=== PATIENT | male | born 1960 | race Caucasian/White ===

== ENCOUNTER → 2017-06-09 | Outpatient (CLI) | payer OTHER ==
[~2017-06-09] MED LIST: LIDOCAINE 1%/EPI 1:100,000 50 ML, SODIUM BICARBONATE VIAL 5 MEQ in IV NORMAL SALINE 100... SQ ONE
--- NOTE | 2017-06-09 14:57 | CARD ---
APPROVED REPORT Patient StatusOUT-PATIENT Incubator Operator: Kassandra Smith RVT; Eric Johnson [facility] Procedure(s) performed: Endovenous radiofrequency ablation of the right lesser saphenous vein with st ab phlebectomy of varicose vein tributaries. INDICATION FOR PROCEDURE The indication(s) include : Symptomatic Chronic Venous Insufficiency with Varicose Veins, lower extre mity pain and edema. PROCEDURE NARRATIVE The patient was transferred to the procedure suite and the insufficient saphenous vein was mapped by ultrasound and diagrammed on the underlying skin. The depth and diameter of the vein(s) to be treate d was documented. The varicose tributary veins and suitable access sites were identified and mapped as well. The patient was then positioned prone on the procedure table. The entire limb was sterilel y prepared and the lower extremity and treatment table were sterilely draped. The RF catheter was p laced on the sterile field, flushed and wiped down, prepared, and connected by a sterile cable. The patient was placed in reverse-Trendelenburg position and local anesthesia was instilled in the sk in overlying the access site. A skin incision was made overlying the identified and mapped lesser sa phenous vein entry site. The vein was punctured through the incision and using ultrasound guidance a nd the Seldinger technique a guide wire was introduced through the needle which was then exchanged ov er the guide wire for a 7 F sheath. The guide wire was removed and the sheath was flushed. The RF p robe was placed into the vein through the sheath and positioned at a point just distal (about 0.5 to 1 cm) to the entrance point of the lesser saphenous vein into the popliteal junction. After the RF probe position was verified by the ultrasound, tumescent anesthesia was infiltrated, und er ultrasound guidance, precisely into the perivenuus compartment along the entire length of vein fro m the entry site to the saphenofemoral junction until a "halo" of fluid was noted around the vein. The patient was then placed in Trendelenburg position. After the RF probe position was again confirm ed with ultrasound imaging, moderate external compression was applied over the RF heating element, an d RF energy was applied. The probe was withdrawn sequentially in 6.5 cm steps with slight overlap of 7 cm segments of ablation and monitored to keep the probe temperature at 120 degrees Celsius and the generator output well below its maximum power. Treatment Segments: 6 Total Length: 26 cm. Tota l Ablation time: 2 minutes. Repeat ultrasound of the saphenous vein was performed confirming successful treatment. The catheter and sheath were withdrawn and hemostasis established with direct pressure. Subsequently, the skin an d subcutaneous tissues over the previously mapped and marked varicose vein tributaries was infiltrate d with local anesthetic, multiple incisions made 2 inches apart and significant venous material was r emoved from each incision. After assuring hemostasis, the skin incisions over the saphenous vein and stab phlebectomies were closed with a bandage and an external compression dressing was applied from t he level of the foot to the most proximal level of the thigh. Patient tolerated the procedure well. T here were no immediate complications.
== END ==
LOC: VNUS 12:12
PROVIDERS: ATTEND Internal Medicine Cardiovascular Disease
DX: I83.11 Varicose veins of right lower extremity with inflammation (principal)
CPT/HCPCS: 36475; 37765; J3490; J7030

== ENCOUNTER 2019-04-21 13:34 | Inpatient (IN) | payer OTHER ==
[~2019-04-21] VITALS: Ht 182.9 cm; Wt 95.7 kg
[2019-04-21 14:49] VITALS: BP 145/89
--- NOTE | 2019-04-21 15:09 | PDOC1 ---
History and Physical Date of Admission Date of Admission DATE: 04/21/19 TIME: 15:08 Identification/Chief Complaint Chief Complaint Abdominal pain Source Source: Patient History of Present Illness History of Present Illness Mr Ortiz is a 58-year-old male retired [employer] w/ PMHx of remote anal fissure surgery, otherwise healthy who presents with lower abdominal discomfort for the past 2 weeks that has been progressive. He has been taking stool softeners and psyllium per his PCP as he also had some constipation early on, but has been having bowel movements, however, he experiences pain and tenesmus. As he did not improve he was referred in by his primary doctor to go to the ED at [facility]. His pain was rated 8/10 and suprapubic and LLQ. Upon CT scan he was found with large abscess identified in the right lower quadrant abdomen abutting the redundant sigmoid colon and cecum. He was called for admission to [facility] as general surgery is not available at [facility]. WBC 13K with left shift, glucose 108, otherwise no abnormalities on labs, he is tachycardic, meets sepsis criteria. He has never had a screening colonoscopy. 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 Lives with his family. He drinks 3-4 beers per night, but has not had a drink since 2 weeks ago. Past Medical History Cardiovascular: No pertinent hx Pulmonary: No pertinent hx GI: No pertinent hx Heme/Onc: No pertinent hx Hepatobiliary: No pertinent hx Psych: No pertinent hx Rheumatologic: No pertinent hx Infectious disease: No pertinent hx ENT: No pertinent hx Renal/: No pertinent hx Endocrine: No pertinent hx Dermatology: No pertinent hx Past Surgical History Past Surgical History: Other (Anal fissure) Family History Family History: Cancer (Liver cancer - Father), Diabetes (Mother) Social History Smoke: No ALCOHOL: other (3-4 beers per night) Drugs: None Current Medications Current Medications Active Scripts Active Reported No Known Medications Prior To Admisstion (Info) Each 1 Each MC 1X Allergies Allergies: Coded Allergies: No Known Drug Allergies (Unverified , 06/09/17) ROS General: YES: Appetite; No: Chills, Night Sweats, Fatigue, Malaise, Other PSYCHOLOGICAL ROS: No: Anxiety, Behavioral Disorder, Concentration difficultie, Decreased libido, Depression, Disorientation, Hallucinations, Hostility, Irritablity, Memory difficulties, Mood Swings, Obsessive thoughts, Physical abuse, Sexual abuse, Sleep disturbances, Suicidal ideation, Other Eyes: No Blurry vision, No Decreased vision, No Double vision, No Dry eyes, No Excessive tearing, No Eye Pain, No Itchy Eyes, No Loss of vision, No Photophobia, No Scotomata, No Uses contacts, No Uses glasses, No Other HEENT: No: Heacaches, Visual Changes, Hearing change, Nasal congestion, Nasal discharge, Oral lesions, Sinus pain, Sore Throat, Epistaxis, Sneezing, Snoring, Tinnitus, Vertigo, Vocal changes, Other ALLERGY AND IMMUNOLOGY: No: Hives, Insect Bite Sensitivity, Itchy/Watery Eyes, Nasal Congestion, Post Nasal Drip, Seasonal Allergies, Other Hematological and Lymphatic: No: Bleeding Problems, Blood Clots, Blood Transfusions, Brusing, Night Sweats, Pallor, Swollen Lymph Nodes, Other ENDOCRINE: No: Breast Changes, Galactorrhea, Hair Pattern Changes, Hot Flashes, Malaise/lethargy, Mood Swings, Palpitations, Polydipsia/polyuria, Skin Changes, Temperature Intolerance, Unexpected Weight Changes, Other Breast: No New/Changing Breast Lumps, No Nipple changes, No Nipple discharge, No Other Respiratory: No: Cough, Hemoptysis, Orthopnea, Pleuritic Pain, Shortness of breath, SOB with excertion, Sputum Changes, Stridor, Tachypnea, Wheezing, Other Cardiovascular: No Chest Pain, No Palpitations, No Orthopnea, No Paroxysmal Noc. Dyspnea, No Edema, No Lt Headedness, No Other Gastrointestinal: Yes Nausea, Yes Abdominal Pain, Yes Constipation; No Vomiting, No Diarrhea, No Melena, No Hematochezia, No Other Genitourinary: No Dysuria, No Frequency, No Incontinence, No Hematuria, No Retention, No Discharge, No Urgency, No Pain, No Flank Pain, No Other, No , No , No , No , No , No , No Musculoskeletal: No Gait Disturbance, No Joint Pain, No Joint Stiffness, No Joint Swelling, No Muscle Pain, No Muscular Weakness, No Pain In:, No Swelling In:, No Other Neurological: No Behavorial Changes, No Bowel/Bladder ControlChng, No Confusion, No Dizziness, No Gait Disturbance, No Headaches, No Impaired Coord/balance, No Memory Loss, No Numbness/Tingling, No Seizures, No Speech Problems, No Tremors, No Visual Changes, No Weakness, No Other Skin: No Dry Skin, No Eczema, No Hair Changes, No Lumps, No Mole Changes, No Mottling, No Nail Changes, No Pruritus, No Rash, No Skin Lesion Changes, No Other, No Acne Physical Exam General: Alert, Oriented X3, Cooperative, mild distress HEENT: Atraumatic, PERRLA, EOMI, Mucous membr. moist/pink, Other (Adentulous, dentures in place) Lungs: Clear to auscultation, Normal air movement Heart: S1S2, RRR, no gallops, no murmurs Abdomen: Normal bowel sounds, Soft, No hepatosplenomegaly, No masses, Other (Suprapubic tenderness) Rectal Exam: not examined Extremities: No clubbing, No cyanosis, No edema, Normal pulses, No tenderness/swelling Skin: No rashes, No breakdown, No significant lesion Neuro: Normal gait, Normal speech, Strength at 5/5 X4 ext, Normal tone, Sensation intact, Cranial nerves 3-12 NL, Reflexes 2+ Psych/Mental Status: Mental status NL, Mood NL Images Images CT abdomen/pelvis - 1. Large abscess identified in the right lower quadrant abdomen abutting the redundant sigmoid colon and cecum. The source of abscess is difficult to evaluate could be sigmoid colon diverticulitis or an appendiceal abscess. 2. A 2.2 cm cystic structure identified in the right lobe of the liver could be a cyst or cystic lesion. Follow-up MRI can be considered. 3. 6.5 mm nodule right middle lobe of the lung. Follow-up CT per Fleischner Society guidelines in 6 months. VTE Prophylaxis Ordered VTE Prophylaxis Devices: No VTE Pharmacological Prophylaxi: Yes Assessment/Plan Assessment/Plan A/P: Intra-abdominal abscess - possibly perforated diverticulitis vs appendix vs malignancy. sherry Yoo. Consult general surgery, GI. May consult IR for drainage based on surgery evaluation. Pain control with dilaudid, he vomited after morphine Sepsis - 2/2 abdominal abscess with leukocytosis 13K and tachycardia, given empiric IVF and antibiotics already. Lactate Liver mass - no h/o liver disease. GI consulted. He should have this further evaluated at some point, will order US Pulmonary nodule - incidental finding, based on size we have advised him of a need for 6 month f/u. FEN - NPO PPX - SCDs, lovenox FULL CODE Dispo - inpatient for intra-abdominal abscess, likely at least 2 midnights. NOEL JACKSON MD Apr 21, 2019 15:09
[2019-04-21] MEDS ORDERED: MORPHINE SULFATE 4 MG/ML VIAL. IV PRN (15:30)
[2019-04-21] MEDS: IV NORMAL SALINE 1000ML BAG 1,000 ML IV SCH (15:40)
[2019-04-21] MEDS: PIPERACILLIN/TAZOBACTAM 3.375 GM in IV NORMAL SALINE 50ML 50 ML IV SCH ×2 (15:42→23:00)
[2019-04-21] MEDS: ONDANSETRON PF 4 MG/2 ML VIAL. IV PRN (16:05)
[2019-04-21] MEDS: HYDROmorphone 2 MG/ML VIAL IVP PRN ×2 (16:06→20:20)
--- NOTE | 2019-04-21 16:13 | PDOC2 ---
GI CONSULT Reason For Consult: Abd abscess HPI: HPI: Pleasant 58 y/o male transferred from [facility]. Ill for 2 weeks - began with periumbilical "belly ache" after weed-eating. Comes and goes, worse when straining to stool, gradually worse (now keeping him awake at night). Location changed - now mostly in lower abdomen. About a week ago had sweats/fever - took Tylenol. Saw his PCP and had an abd x-ray in [place] that reportedly showed a lot of retained stool. He tried Miralax, suppositories, and Gas-X without much relief. Last passed a small stool yesterday. Appetite was stable until about 3-4 days ago - now just not hungry. Denies reflux/heartburn, dysphagia, n/v, diarrhea, hematochezia, melena, and weight loss. Typically more on the constipated side - regulated w/ Metamucil. No previous EGD or colonoscopy. No GB, liver, pancreas, or PUD history. No NSAID use. CT @ [facility]: large abscess in RLQ abutting redundant sigmoid colon and cecum (s ource difficult to evaluate- diverticulitis or appendiceal), 2.2cm cystic structure in right hepatic lobe, hepatic steatosis, and right middle lung nodule. Labs noted WBC 13.8, normal Hgb, normal LFTs, normal Cr. D/w Dr. Webster - surgery and IR asked to comment. PMH: PMH: allergic rhinitis anal fissure repair, vein stripping FH: Family History: Cancer (father - liver), Other (multiple relatives w/ diverticulitis) Social History: Smoke: No ALCOHOL: other (4-5 beers daily) Drugs: None ROS: GEN: Denies fevers, chills, sweats HEENT: Denies blurred vision, sore throat CV: Denies chest pain RESP: Denies shortness of air, cough GI: Per HPI : Denies hematuria, dysuria ENDO: Denies weight changes NEURO: Denies confusion, dizziness MSK: Denies weakness, joint pain/swelling SKIN: Denies jaundice, pruritus Allergies: Coded Allergies: No Known Drug Allergies (Unverified , 06/09/17) Medications: Current Medications Medications (Trade) Dose Ordered Sig/Linda Route PRN Reason Start Time Stop Time Status Last Admin Dose Admin Sodium Chloride 1,000 ml @ 100 mls/hr Q10H IV 04/21/19 16:00 04/21/19 15:40 Piperacillin Sod/ Tazobactam Sod 3.375 gm/Sodium Chloride 50 ml @ 100 mls/hr Q8HRS IV 04/21/19 16:00 04/21/19 15:42 PE: GEN: NAD - supportive family present HEENT: Atraumatic, PERRL LUNGS: CTAB anteriorly HEART: RRR ABD: quiet BS, soft, non-distended, right suprapubic tenderness to light palpation EXTREMITY: No edema SKIN: No rashes, no jaundice NEURO/PSYCH: A & O 3 A/P: A/P: Abd pain - periumbilical at first, now lower Change in bowel habits Leukocytosis Abnormal CT - RLQ abscess CRC screen - none H/o constipation - controlled w/ Metamucil Hepatic steatosis, right hepatic cystic lesion -- ?appendicitis - await IR and surgical thoughts Agree w/ atbx. Needs screening colonoscopy down the road. DEBBIE BRUNER Apr 21, 2019 16:13
--- NOTE | 2019-04-21 16:52 | PDOC2 ---
CONSULT Date of Consult Date of Consult DATE: 04/21/19 TIME: 16:44 Reason for Consult Reason for Consult: abdominal abscess Referring Physician Referring Physician: KARI Identification/Chief Complaint Chief Complaint lower abdominal pain Source Source: Chart review, Patient History of Present Illness Reason for Visit: Mr Ortiz is a 58 yo gentleman with a two week hx of abdominal pain that started around the umbilicus. Now worse in lower abdomen. CT done in the [facility] ED showed an abdominal abscess. Past Medical History Cardiovascular: No pertinent hx Pulmonary: No pertinent hx GI: No pertinent hx Heme/Onc: No pertinent hx Hepatobiliary: No pertinent hx Psych: No pertinent hx Rheumatologic: No pertinent hx Infectious disease: No pertinent hx ENT: No pertinent hx Renal/: No pertinent hx Endocrine: No pertinent hx Dermatology: No pertinent hx Past Surgical History Past Surgical History: Other (Anal fissure) Family History Family History: Cancer (Liver cancer - Father), Diabetes (Mother) Social History No ALCOHOL: other (4-5 beers daily) Drugs: None Current Medications Current Medications Current Medications Sodium Chloride 1,000 ml @ 100 mls/hr Q10H IV Last administered on 04/21/19at 15:40; Start 04/21/19 at 16:00 Ondansetron HCl (Zofran) 4 mg PRN Q4HRS PRN IV NAUSEA/VOMITING Last administered on 04/21/19at 16:05; Start 04/21/19 at 15:15 Piperacillin Sod/ Tazobactam Sod 3.375 gm/Sodium Chloride 50 ml @ 100 mls/hr Q8HRS IV Last administered on 04/21/19at 15:42; Start 04/21/19 at 16:00 Metronidazole 100 ml @ 100 mls/hr Q8HRS IV Last administered on 04/21/19at 16:29; Start 04/21/19 at 16:00 Morphine Sulfate (Morphine Sulfate) 4 mg PRN Q3HRS PRN IV PAIN; Start 04/21/19 at 15:30; Stop 04/21/19 at 15:53; Status DC Hydromorphone HCl (Dilaudid) 0.4 mg PRN Q4HRS PRN IVP PAIN Last administered on 04/21/19at 16:06; Start 04/21/19 at 16:00 Active Scripts Active Reported No Known Medications Prior To Admisstion (Info) Each 1 Each 1X Allergies Allergies: Coded Allergies: No Known Drug Allergies (Unverified , 06/09/17) ROS General: YES: Chills Gastrointestinal: Yes Abdominal Pain, Yes Other (anorexia) Physical Exam General: Alert, Oriented X3, No acute distress HEENT: Atraumatic Lungs: Normal air movement Heart: Regular rate, Other Abdomen: Other (TTP in the lower quadrants) Neuro: Normal speech Vitals VITALS Vital Signs Date Time Temp Pulse Resp B/P (MAP) Pulse Ox O2 Delivery O2 Flow Rate FiO2 04/21/19 16:40 Room Air T 97.7, 145/89, HR 80, RR [address] scan from [facility] reviewed with the radiologist Assessment/Plan Assessment/Plan pelvic abscess, ruptured appendix vs perforated diverticulitis dehydration IV abx, hydration d/w IR for percutaneous drainage in the AM hopefully can defervesce acute episode prior to surgical intervention will follow with you Thanks for consult HILDA WALKER MD Apr 21, 2019 16:52
[2019-04-21 19:50] VITALS: BP 131/80
[2019-04-21] MEDS ORDERED: HYDROmorphone 2 MG/ML VIAL IVP ONE (23:00)
[2019-04-21] MEDS: HEPARIN for SUB-Q USE 5,000 UNIT/ML VIAL. SQ SCH (23:20)
[2019-04-21 23:54] VITALS: BP 141/83
[2019-04-22] VITALS (16 sets, daily range): BP systolic 118–143; BP diastolic 81–99
[2019-04-22] MEDS: HYDROmorphone 2 MG/ML VIAL IVP PRN ×6 (02:37→20:39)
[2019-04-22 04:44] LABS: BASO % 0 % (0-3); EOS # 0.1 x10^3/uL (0.0-0.7); EOS % 0 % (0-3); HEMATOCRIT 40.1 % (39.0-53.0); HEMOGLOBIN 13.9 g/dL (13.0-17.5); LYMPH # 0.8 x10^3/uL (1.0-4.8); LYMPH % 7 % (24-48); MEAN CORPUSCULAR HEMOGLOBIN 33 pg (25-35); MEAN CORPUSCULAR HGB CONC 35 g/dL (31-37); MEAN CORPUSCULAR VOLUME 95 fL (79-100); MONO # 1.2 x10^3/uL (0.0-1.1); MONO % 10 % (0-9); NEUT # 9.4 x10^3/uL (1.8-7.7); NEUT % 82 % (31-73); PLATELET COUNT 285 x10^3/uL (140-400); RED BLOOD COUNT 4.24 x10^6/uL (4.30-5.70); RED CELL DISTRIBUTION WIDTH 12.8 % (11.5-14.5); WHITE BLOOD COUNT 11.5 x10^3/uL (4.0-11.0)
[2019-04-22 04:57] LABS: ALBUMIN 2.6 g/dL (3.4-5.0); ALBUMIN/GLOBULIN RATIO 0.7 (1.0-1.7); CALCIUM 8.7 mg/dL (8.5-10.1); GFR 76.2; POTASSIUM 4.1 mmol/L (3.5-5.1); TOTAL BILIRUBIN 0.8 mg/dL (0.2-1.0); TOTAL PROTEIN 6.4 g/dL (6.4-8.2)
[2019-04-22] MEDS: IV NORMAL SALINE 1000ML BAG 1,000 ML IV SCH ×3 (06:10→20:44)
[2019-04-22] MEDS: PIPERACILLIN/TAZOBACTAM 3.375 GM in IV NORMAL SALINE 50ML 50 ML IV SCH ×3 (06:43→20:39)
[2019-04-22] MEDS: HEPARIN for SUB-Q USE 5,000 UNIT/ML VIAL. SQ SCH ×2 (06:55→20:39)
--- NOTE | 2019-04-22 08:17 | PDOC ---
TODD VALERIO OUTSOLE TACKER 04/22/19 0817: SURGICAL PROGRESS NOTE Subjective pain 7-8 did have a small stool and some flatus Vital Signs Vital Signs Date Time Temp Pulse Resp B/P (MAP) Pulse Ox O2 Delivery O2 Flow Rate FiO2 04/22/19 07:21 Room Air 04/22/19 03:51 97.7 79 18 132/81 (98) 94 97.7 I&O Intake and Output 04/22/19 07:00 Intake Total 0 ml Output Total 975 ml Balance -975 ml Intake Oral 0 ml Output Urine Total 975 ml General: Alert, Oriented X3, Cooperative, No acute distress Abdomen: Soft, Other (distended, ttp lower abd on exam) Labs Laboratory Tests Test 04/21/19 16:15 04/22/19 04:10 Lactic Acid Level 1.1 mmol/L (0.4-2.0) White Blood Count 11.5 x10^3/uL (4.0-11.0) Red Blood Count 4.24 x10^6/uL (4.30-5.70) Hemoglobin 13.9 g/dL (13.0-17.5) Hematocrit 40.1 % (39.0-53.0) Mean Corpuscular Volume 95 fL (79-100) Mean Corpuscular Hemoglobin 33 pg (25-35) Mean Corpuscular Hemoglobin Concent 35 g/dL (31-37) Red Cell Distribution Width 12.8 % (11.5-14.5) Platelet Count 285 x10^3/uL (140-400) Neutrophils (%) (Auto) 82 % (31-73) Lymphocytes (%) (Auto) 7 % (24-48) Monocytes (%) (Auto) 10 % (0-9) Eosinophils (%) (Auto) 0 % (0-3) Basophils (%) (Auto) 0 % (0-3) Neutrophils # (Auto) 9.4 x10^3/uL (1.8-7.7) Lymphocytes # (Auto) 0.8 x10^3/uL (1.0-4.8) Monocytes # (Auto) 1.2 x10^3/uL (0.0-1.1) Eosinophils # (Auto) 0.1 x10^3/uL (0.0-0.7) Basophils # (Auto) 0.0 x10^3/uL (0.0-0.2) Prothrombin Time 15.0 SEC (11.7-14.0) Prothromb Time International Ratio 1.2 (0.8-1.1) Sodium Level 142 mmol/L (136-145) Potassium Level 4.1 mmol/L (3.5-5.1) Chloride Level 106 mmol/L (98-107) Carbon Dioxide Level 29 mmol/L (21-32) Anion Gap 7 (6-14) Blood Urea Nitrogen 11 mg/dL (8-26) Creatinine 1.0 mg/dL (0.7-1.3) Estimated GFR (Cockcroft-Gault) 76.2 BUN/Creatinine Ratio 11 (6-20) Glucose Level 91 mg/dL (70-99) Calcium Level 8.7 mg/dL (8.5-10.1) Total Bilirubin 0.8 mg/dL (0.2-1.0) Aspartate Amino Transf (AST/SGOT) 15 U/L (15-37) Alanine Aminotransferase (ALT/SGPT) 30 U/L (16-63) Alkaline Phosphatase 62 U/L (46-116) Total Protein 6.4 g/dL (6.4-8.2) Albumin 2.6 g/dL (3.4-5.0) Albumin/Globulin Ratio 0.7 (1.0-1.7) Laboratory Tests Test 04/21/19 16:15 04/22/19 04:10 Lactic Acid Level 1.1 mmol/L (0.4-2.0) White Blood Count 11.5 x10^3/uL (4.0-11.0) Red Blood Count 4.24 x10^6/uL (4.30-5.70) Hemoglobin 13.9 g/dL (13.0-17.5) Hematocrit 40.1 % (39.0-53.0) Mean Corpuscular Volume 95 fL (79-100) Mean Corpuscular Hemoglobin 33 pg (25-35) Mean Corpuscular Hemoglobin Concent 35 g/dL (31-37) Red Cell Distribution Width 12.8 % (11.5-14.5) Platelet Count 285 x10^3/uL (140-400) Neutrophils (%) (Auto) 82 % (31-73) Lymphocytes (%) (Auto) 7 % (24-48) Monocytes (%) (Auto) 10 % (0-9) Eosinophils (%) (Auto) 0 % (0-3) Basophils (%) (Auto) 0 % (0-3) Neutrophils # (Auto) 9.4 x10^3/uL (1.8-7.7) Lymphocytes # (Auto) 0.8 x10^3/uL (1.0-4.8) Monocytes # (Auto) 1.2 x10^3/uL (0.0-1.1) Eosinophils # (Auto) 0.1 x10^3/uL (0.0-0.7) Basophils # (Auto) 0.0 x10^3/uL (0.0-0.2) Prothrombin Time 15.0 SEC (11.7-14.0) Prothromb Time International Ratio 1.2 (0.8-1.1) Sodium Level 142 mmol/L (136-145) Potassium Level 4.1 mmol/L (3.5-5.1) Chloride Level 106 mmol/L (98-107) Carbon Dioxide Level 29 mmol/L (21-32) Anion Gap 7 (6-14) Blood Urea Nitrogen 11 mg/dL (8-26) Creatinine 1.0 mg/dL (0.7-1.3) Estimated GFR (Cockcroft-Gault) 76.2 BUN/Creatinine Ratio 11 (6-20) Glucose Level 91 mg/dL (70-99) Calcium Level 8.7 mg/dL (8.5-10.1) Total Bilirubin 0.8 mg/dL (0.2-1.0) Aspartate Amino Transf (AST/SGOT) 15 U/L (15-37) Alanine Aminotransferase (ALT/SGPT) 30 U/L (16-63) Alkaline Phosphatase 62 U/L (46-116) Total Protein 6.4 g/dL (6.4-8.2) Albumin 2.6 g/dL (3.4-5.0) Albumin/Globulin Ratio 0.7 (1.0-1.7) Assessment/Plan pelvic abscess continue abx IR eval pending perc drain HILDA WALKER MD 04/22/19 1214: SURGICAL PROGRESS NOTE Assessment/Plan pt seen family in room awaitng IR procedure TODD VALERIO OUTSOLE TACKER Apr 22, 2019 08:17 HILDA WALKER MD Apr 22, 2019 12:14
--- NOTE | 2019-04-22 08:58 | PDOC ---
PROGRESS NOTES Chief Complaint Chief Complaint A/P: Intra-abdominal abscess - possibly perforated diverticulitis vs appendix vs malignancy. sherry Yoo. Consult general surgery, GI. May consult IR for drainage based on surgery evaluation. Pain control with dilaudid, he vomited after morphine Sepsis - 2/2 abdominal abscess with leukocytosis 13K and tachycardia, given empiric IVF and antibiotics already. Lactate neg Liver mass - no h/o liver disease. GI consulted. He should have this further evaluated at some point, will order US Elevated INR - possibly 2/2 poor nutritional status recently. Will monitor Pulmonary nodule - incidental finding, based on size we have advised him of a need for 6 month f/u. FEN - NPO PPX - SCDs, lovenox FULL CODE Dispo - inpatient for intra-abdominal abscess, likely at least 2 midnights. 30 minutes on chart review, patient examination, d/w family History of Present Illness History of Present Illness Mr Ortiz is a 58-year-old male retired [employer] w/ PMHx of remote anal fissure surgery, otherwise healthy who presents with lower abdominal discomfort for the past 2 weeks that has been progressive. He has been taking stool softeners and psyllium per his PCP as he also had some constipation early on, but has been having bowel movements, however, he experiences pain and tenesmus. As he did not improve he was referred in by his primary doctor to go to the ED at [facility]. His pain was rated 8/10 and suprapubic and LLQ. Upon CT scan he was found with large abscess identified in the right lower quadrant abdomen abutting the redundant sigmoid colon and cecum. He was called for admission to [facility] as general surgery is not available at [facility]. WBC 13K with left shift, glucose 108, otherwise no abnormalities on labs, he is tachycardic, meets sepsis criteria. He has never had a screening colonoscopy. 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 Lives with his family. He drinks 3-4 beers per night, but has not had a drink since 2 weeks ago. Overnight lost IV access, had significant pain, likely did not receive a full dose of dilaudid, after reinsertion of IV his pain is better with meds. He did have a small BM this morning. Plans for IR drain today. No CP or SOB Vitals Vitals Vital Signs Date Time Temp Pulse Resp B/P (MAP) Pulse Ox O2 Delivery O2 Flow Rate FiO2 04/22/19 07:21 Room Air 04/22/19 07:00 98.0 91 16 135/86 (102) 93 98.0 Physical Exam General: Alert, Oriented X3, Cooperative, No acute distress Heart: Regular rate, Other Lungs: Clear Abdomen: Soft, Other (distended, ttp lower abd on exam) Extremities: No clubbing, No cyanosis, No edema, Normal pulses, No tenderness/swelling Skin: No rashes, No breakdown, No significant lesion Labs LABS Laboratory Tests Test 04/21/19 16:15 04/22/19 04:10 Lactic Acid Level 1.1 mmol/L (0.4-2.0) White Blood Count 11.5 x10^3/uL (4.0-11.0) Red Blood Count 4.24 x10^6/uL (4.30-5.70) Hemoglobin 13.9 g/dL (13.0-17.5) Hematocrit 40.1 % (39.0-53.0) Mean Corpuscular Volume 95 fL (79-100) Mean Corpuscular Hemoglobin 33 pg (25-35) Mean Corpuscular Hemoglobin Concent 35 g/dL (31-37) Red Cell Distribution Width 12.8 % (11.5-14.5) Platelet Count 285 x10^3/uL (140-400) Neutrophils (%) (Auto) 82 % (31-73) Lymphocytes (%) (Auto) 7 % (24-48) Monocytes (%) (Auto) 10 % (0-9) Eosinophils (%) (Auto) 0 % (0-3) Basophils (%) (Auto) 0 % (0-3) Neutrophils # (Auto) 9.4 x10^3/uL (1.8-7.7) Lymphocytes # (Auto) 0.8 x10^3/uL (1.0-4.8) Monocytes # (Auto) 1.2 x10^3/uL (0.0-1.1) Eosinophils # (Auto) 0.1 x10^3/uL (0.0-0.7) Basophils # (Auto) 0.0 x10^3/uL (0.0-0.2) Prothrombin Time 15.0 SEC (11.7-14.0) Prothromb Time International Ratio 1.2 (0.8-1.1) Sodium Level 142 mmol/L (136-145) Potassium Level 4.1 mmol/L (3.5-5.1) Chloride Level 106 mmol/L (98-107) Carbon Dioxide Level 29 mmol/L (21-32) Anion Gap 7 (6-14) Blood Urea Nitrogen 11 mg/dL (8-26) Creatinine 1.0 mg/dL (0.7-1.3) Estimated GFR (Cockcroft-Gault) 76.2 BUN/Creatinine Ratio 11 (6-20) Glucose Level 91 mg/dL (70-99) Calcium Level 8.7 mg/dL (8.5-10.1) Total Bilirubin 0.8 mg/dL (0.2-1.0) Aspartate Amino Transf (AST/SGOT) 15 U/L (15-37) Alanine Aminotransferase (ALT/SGPT) 30 U/L (16-63) Alkaline Phosphatase 62 U/L (46-116) Total Protein 6.4 g/dL (6.4-8.2) Albumin 2.6 g/dL (3.4-5.0) Albumin/Globulin Ratio 0.7 (1.0-1.7) Comment Review of Relevant I have reviewed the following items jessica (where applicable) has been applied. Labs Laboratory Tests Test 04/21/19 16:15 04/22/19 04:10 Lactic Acid Level 1.1 mmol/L (0.4-2.0) White Blood Count 11.5 x10^3/uL (4.0-11.0) Red Blood Count 4.24 x10^6/uL (4.30-5.70) Hemoglobin 13.9 g/dL (13.0-17.5) Hematocrit 40.1 % (39.0-53.0) Mean Corpuscular Volume 95 fL (79-100) Mean Corpuscular Hemoglobin 33 pg (25-35) Mean Corpuscular Hemoglobin Concent 35 g/dL (31-37) Red Cell Distribution Width 12.8 % (11.5-14.5) Platelet Count 285 x10^3/uL (140-400) Neutrophils (%) (Auto) 82 % (31-73) Lymphocytes (%) (Auto) 7 % (24-48) Monocytes (%) (Auto) 10 % (0-9) Eosinophils (%) (Auto) 0 % (0-3) Basophils (%) (Auto) 0 % (0-3) Neutrophils # (Auto) 9.4 x10^3/uL (1.8-7.7) Lymphocytes # (Auto) 0.8 x10^3/uL (1.0-4.8) Monocytes # (Auto) 1.2 x10^3/uL (0.0-1.1) Eosinophils # (Auto) 0.1 x10^3/uL (0.0-0.7) Basophils # (Auto) 0.0 x10^3/uL (0.0-0.2) Prothrombin Time 15.0 SEC (11.7-14.0) Prothromb Time International Ratio 1.2 (0.8-1.1) Sodium Level 142 mmol/L (136-145) Potassium Level 4.1 mmol/L (3.5-5.1) Chloride Level 106 mmol/L (98-107) Carbon Dioxide Level 29 mmol/L (21-32) Anion Gap 7 (6-14) Blood Urea Nitrogen 11 mg/dL (8-26) Creatinine 1.0 mg/dL (0.7-1.3) Estimated GFR (Cockcroft-Gault) 76.2 BUN/Creatinine Ratio 11 (6-20) Glucose Level 91 mg/dL (70-99) Calcium Level 8.7 mg/dL (8.5-10.1) Total Bilirubin 0.8 mg/dL (0.2-1.0) Aspartate Amino Transf (AST/SGOT) 15 U/L (15-37) Alanine Aminotransferase (ALT/SGPT) 30 U/L (16-63) Alkaline Phosphatase 62 U/L (46-116) Total Protein 6.4 g/dL (6.4-8.2) Albumin 2.6 g/dL (3.4-5.0) Albumin/Globulin Ratio 0.7 (1.0-1.7) Laboratory Tests Test 04/21/19 16:15 04/22/19 04:10 Lactic Acid Level 1.1 mmol/L (0.4-2.0) White Blood Count 11.5 x10^3/uL (4.0-11.0) Red Blood Count 4.24 x10^6/uL (4.30-5.70) Hemoglobin 13.9 g/dL (13.0-17.5) Hematocrit 40.1 % (39.0-53.0) Mean Corpuscular Volume 95 fL (79-100) Mean Corpuscular Hemoglobin 33 pg (25-35) Mean Corpuscular Hemoglobin Concent 35 g/dL (31-37) Red Cell Distribution Width 12.8 % (11.5-14.5) Platelet Count 285 x10^3/uL (140-400) Neutrophils (%) (Auto) 82 % (31-73) Lymphocytes (%) (Auto) 7 % (24-48) Monocytes (%) (Auto) 10 % (0-9) Eosinophils (%) (Auto) 0 % (0-3) Basophils (%) (Auto) 0 % (0-3) Neutrophils # (Auto) 9.4 x10^3/uL (1.8-7.7) Lymphocytes # (Auto) 0.8 x10^3/uL (1.0-4.8) Monocytes # (Auto) 1.2 x10^3/uL (0.0-1.1) Eosinophils # (Auto) 0.1 x10^3/uL (0.0-0.7) Basophils # (Auto) 0.0 x10^3/uL (0.0-0.2) Prothrombin Time 15.0 SEC (11.7-14.0) Prothromb Time International Ratio 1.2 (0.8-1.1) Sodium Level 142 mmol/L (136-145) Potassium Level 4.1 mmol/L (3.5-5.1) Chloride Level 106 mmol/L (98-107) Carbon Dioxide Level 29 mmol/L (21-32) Anion Gap 7 (6-14) Blood Urea Nitrogen 11 mg/dL (8-26) Creatinine 1.0 mg/dL (0.7-1.3) Estimated GFR (Cockcroft-Gault) 76.2 BUN/Creatinine Ratio 11 (6-20) Glucose Level 91 mg/dL (70-99) Calcium Level 8.7 mg/dL (8.5-10.1) Total Bilirubin 0.8 mg/dL (0.2-1.0) Aspartate Amino Transf (AST/SGOT) 15 U/L (15-37) Alanine Aminotransferase (ALT/SGPT) 30 U/L (16-63) Alkaline Phosphatase 62 U/L (46-116) Total Protein 6.4 g/dL (6.4-8.2) Albumin 2.6 g/dL (3.4-5.0) Albumin/Globulin Ratio 0.7 (1.0-1.7) Medications Current Medications Sodium Chloride 1,000 ml @ 100 mls/hr Q10H IV Last administered on 04/22/19at 06:10; Start 04/21/19 at 16:00 Ondansetron HCl (Zofran) 4 mg PRN Q4HRS PRN IV NAUSEA/VOMITING Last administered on 04/21/19at 16:05; Start 04/21/19 at 15:15 Piperacillin Sod/ Tazobactam Sod 3.375 gm/Sodium Chloride 50 ml @ 100 mls/hr Q8HRS IV Last administered on 04/22/19at 06:43; Start 04/21/19 at 16:00 Metronidazole 100 ml @ 100 mls/hr Q8HRS IV Last administered on 04/22/19at 05:37; Start 04/21/19 at 16:00 Morphine Sulfate (Morphine Sulfate) 4 mg PRN Q3HRS PRN IV PAIN; Start 04/21/19 at 15:30; Stop 04/21/19 at 15:53; Status DC Hydromorphone HCl (Dilaudid) 0.4 mg PRN Q4HRS PRN IVP PAIN Last administered on 04/21/19at 20:20; Start 04/21/19 at 16:00; Stop 04/21/19 at 22:41; Status DC Hydromorphone HCl (Dilaudid) 0.4 mg PRN Q3HRS PRN IVP PAIN Last administered on 04/22/19at 05:45; Start 04/21/19 at 22:45 Oxycodone/ Acetaminophen (Percocet 5/325) 1 tab PRN Q6HRS PRN PO PAIN; Start 04/21/19 at 22:45 Heparin Sodium (Porcine) (Heparin Sodium) 5,000 unit Q12HR SQ Last administered on 04/21/19at 23:20; Start 04/21/19 at 22:45 Hydromorphone HCl (Dilaudid) 0.4 mg 1X ONCE IVP Last administered on 04/21/19at 22:57; Start 04/21/19 at 23:00; Stop 04/21/19 at 23:01; Status DC Active Scripts Active Reported No Known Medications Prior To Admisstion (Info) Each 1 Each MC 1X Vitals/I & O Vital Sign - Last 24 Hours 04/21/19 04/21/19 04/21/19 04/21/19 14:49 16:06 16:40 19:45 Temp 97.7 97.7 Pulse 80 Resp 16 B/P (MAP) 145/89 (107) Pulse Ox 95 O2 Delivery Room Air Room Air Room Air Room Air 04/21/19 04/21/19 04/21/19 04/21/19 19:50 20:20 20:50 22:57 Temp 99.1 99.1 Pulse 84 B/P (MAP) 131/80 (97) Pulse Ox 93 O2 Delivery Room Air Room Air Room Air Room Air 04/21/19 04/21/19 04/22/19 04/22/19 23:27 23:54 02:37 03:07 Temp 99.2 99.2 Pulse 90 Resp 18 B/P (MAP) 141/83 (102) O2 Delivery Room Air Room Air Room Air Room Air 04/22/19 04/22/19 04/22/19 04/22/19 03:51 05:45 06:10 07:00 Temp 97.7 98.0 97.7 98.0 Pulse 79 91 Resp 18 16 B/P (MAP) 132/81 (98) 135/86 (102) Pulse Ox 94 93 O2 Delivery Room Air Room Air Room Air 04/22/19 07:21 O2 Delivery Room Air Intake and Output 04/21/19 04/21/19 04/22/19 14:59 22:59 06:59 Intake Total 0 ml Output Total 475 ml 500 ml Balance -475 ml -500 ml NOEL JACKSON MD Apr 22, 2019 08:58
--- NOTE | 2019-04-22 09:46 | PDOC ---
Subjective: Subjective: Feels the same - pain meds help if taken regularly. Objective: Objective: D/w nurse - plans for drain w/ IR today. Vital Signs: Vital Signs Date Time Temp Pulse Resp B/P (MAP) Pulse Ox O2 Delivery O2 Flow Rate FiO2 04/22/19 09:25 93 Room Air 04/22/19 07:00 98.0 91 16 135/86 (102) 98.0 Labs: Laboratory Tests Test 04/21/19 16:15 04/22/19 04:10 Lactic Acid Level 1.1 mmol/L White Blood Count 11.5 x10^3/uL Red Blood Count 4.24 x10^6/uL Hemoglobin 13.9 g/dL Hematocrit 40.1 % Mean Corpuscular Volume 95 fL Mean Corpuscular Hemoglobin 33 pg Mean Corpuscular Hemoglobin Concent 35 g/dL Red Cell Distribution Width 12.8 % Platelet Count 285 x10^3/uL Neutrophils (%) (Auto) 82 % Lymphocytes (%) (Auto) 7 % Monocytes (%) (Auto) 10 % Eosinophils (%) (Auto) 0 % Basophils (%) (Auto) 0 % Neutrophils # (Auto) 9.4 x10^3/uL Lymphocytes # (Auto) 0.8 x10^3/uL Monocytes # (Auto) 1.2 x10^3/uL Eosinophils # (Auto) 0.1 x10^3/uL Basophils # (Auto) 0.0 x10^3/uL Prothrombin Time 15.0 SEC Prothromb Time International Ratio 1.2 Sodium Level 142 mmol/L Potassium Level 4.1 mmol/L Chloride Level 106 mmol/L Carbon Dioxide Level 29 mmol/L Anion Gap 7 Blood Urea Nitrogen 11 mg/dL Creatinine 1.0 mg/dL Estimated GFR (Cockcroft-Gault) 76.2 BUN/Creatinine Ratio 11 Glucose Level 91 mg/dL Calcium Level 8.7 mg/dL Total Bilirubin 0.8 mg/dL Aspartate Amino Transf (AST/SGOT) 15 U/L Alanine Aminotransferase (ALT/SGPT) 30 U/L Alkaline Phosphatase 62 U/L Total Protein 6.4 g/dL Albumin 2.6 g/dL Albumin/Globulin Ratio 0.7 PE: GEN: NAD LUNGS: CTAB HEART: RRR ABD: right suprapubic discomfort NEURO/PSYCH: A & O 3 A/P: RLQ abscess Leukocytosis - better -- Plans as above, will follow. DEBBIE BRUNER Apr 22, 2019 09:46
[2019-04-22] MEDS ORDERED: fentaNYL PF VIAL 100 MCG/2 ML VIAL ONE (13:24)
[2019-04-22] MEDS ORDERED: MIDAZOLAM HCL/PF 2 MG/2 ML VIAL. ONE (13:24)
[2019-04-22] MEDS ORDERED: LIDOCAINE WITH 8.4% SOD BICARB 3 ML DISP.SYRIN. ONE (13:27)
[2019-04-22] MEDS ORDERED: LIDOCAINE WITH 8.4% SOD BICARB 3 ML DISP.SYRIN. IJ ONE (13:45)
[2019-04-22] MEDS ORDERED: fentaNYL PF VIAL 100 MCG/2 ML VIAL IV ONE (13:45)
[2019-04-22] MEDS ORDERED: MIDAZOLAM HCL/PF 2 MG/2 ML VIAL. IV ONE (13:45)
--- NOTE | 2019-04-22 14:05 | NUR ---
SS following for discharge planning. SS reviewed pt chart. Pt is from home with family and is currently on room air. SS will continue to follow for discharge planning.
--- NOTE | 2019-04-22 14:27 | PDOC ---
Provider Note Provider Note SURG pt seen in IR after drain placed tolerated well will continue expectant treatment, Abx HILDA WALKER MD Apr 22, 2019 14:27
--- NOTE | 2019-04-22 14:41 | PDOC ---
MODERATE SEDATION ASSESSMENT RISKS/ALTERNATIVES Risks/Alternatives Risks and alternatives of this type of sedation and procedure discussed with: RISK/ALTERNATIVES: Patient H & P ON CHART H & P H & P on chart and reviewed for co-morbid conditions and appropriate labs. H&P ON CHART: Yes STATUS PREG STATUS ASSESSED: Yes MEDS/ALLERGIES REVIEWED Meds/Allergies Reviewed Medications and Allergies including time and route of recently administered narcotics and sedatives. MEDS/ALLERGIES REVIEWED: Yes ASA RATING ASA RATING: II AIRWAY ASSESSMENT Airway Assessment Airway patency, oral function limitations, presence of caps, crowns, dentures, partials, and ability to extend neck assessed. AIRWAY ASSESSMENT: Yes MALLAMPATI SCORE MALLAMPATI SCORE: II PRE-SEDATION ASSESSMENT PRE-SEDATION ASSESSMENT: Yes ARTHUR FLANNERY MD Apr 22, 2019 14:41
--- NOTE | 2019-04-22 14:42 | PDOC ---
BRIEF OPERATIVE NOTE Pre-Op Diagnosis Abdominal abscess Post-Op Diagnosis same Procedure Performed CT abdominal drain Surgeon Katiuska Anesthesia Type: Conscious Sedation Specimens Obtained 10cc brittany pus Findings 12F drain ARTHUR FLANNERY MD Apr 22, 2019 14:42
[2019-04-22] MEDS: oxyCODONE/APAP 5/325 1 TAB TABLET PO PRN ×2 (17:23→23:23)
[2019-04-22] MEDS: ONDANSETRON PF 4 MG/2 ML VIAL. IV PRN (20:38)
[2019-04-23] MEDS ORDERED: ACETAMINOPHEN 325 MG TABLET. PO PRN
[2019-04-23] MEDS: HYDROmorphone 2 MG/ML VIAL IVP PRN ×2 (02:35→14:23)
[2019-04-23 03:06] VITALS: BP 129/69
[2019-04-23 05:32] LABS: BASO % 0 % (0-3); EOS % 0 % (0-3); HEMATOCRIT 41.3 % (39.0-53.0); HEMOGLOBIN 14.1 g/dL (13.0-17.5); LYMPH # 0.8 x10^3/uL (1.0-4.8); LYMPH % 6 % (24-48); MEAN CORPUSCULAR HEMOGLOBIN 32 pg (25-35); MEAN CORPUSCULAR HGB CONC 34 g/dL (31-37); MEAN CORPUSCULAR VOLUME 95 fL (79-100); MONO # 0.8 x10^3/uL (0.0-1.1); MONO % 6 % (0-9); NEUT # 13.1 x10^3/uL (1.8-7.7); NEUT % 88 % (31-73); PLATELET COUNT 287 x10^3/uL (140-400); RED BLOOD COUNT 4.36 x10^6/uL (4.30-5.70); RED CELL DISTRIBUTION WIDTH 12.6 % (11.5-14.5); WHITE BLOOD COUNT 14.8 x10^3/uL (4.0-11.0)
[2019-04-23 05:50] LABS: CALCIUM 8.7 mg/dL (8.5-10.1); CREATININE 0.9 mg/dL (0.7-1.3); GFR 86.1; POTASSIUM 3.4 mmol/L (3.5-5.1)
[2019-04-23] MEDS: PIPERACILLIN/TAZOBACTAM 3.375 GM in IV NORMAL SALINE 50ML 50 ML IV SCH ×3 (06:16→23:50)
[2019-04-23] MEDS: oxyCODONE/APAP 5/325 1 TAB TABLET PO PRN (06:16)
[2019-04-23 07:00] VITALS: BP 135/77
[2019-04-23 07:42] LABS: % BANDS 7 % (0-9); % LYMPHS 1 % (24-48); % MONOS 6 % (0-10); % SEGS 86 % (35-66); PLT ESTIMATE ADEQUATE (ADEQUATE)
[2019-04-23] MEDS: HEPARIN for SUB-Q USE 5,000 UNIT/ML VIAL. SQ SCH (08:56)
[2019-04-23 11:00] VITALS: BP 140/84
[2019-04-23] MEDS ORDERED: POTASSIUM CHLORIDE 20 MEQ TABLET.ER. PO ONE (12:15)
--- NOTE | 2019-04-23 13:54 | PDOC ---
SURGICAL PROGRESS NOTE Subjective taking a full liquid diet lots of family in room has had some stools adequate pain control Vital Signs Vital Signs Date Time Temp Pulse Resp B/P (MAP) Pulse Ox O2 Delivery O2 Flow Rate FiO2 04/23/19 11:00 97.7 90 18 140/84 (102) 93 Room Air 97.7 04/22/19 14:27 2.0 I&O Intake and Output 04/23/19 07:00 Output Total 870 ml Balance -870 ml Output Urine Total 750 ml Drainage Total 120 ml # Voids 3 # Bowel Movements 3 PATIENT HAS A ALEJANDRO: No General: Alert, No acute distress Abdomen: Soft, Other (mildly TTP lower quadrants) Labs Laboratory Tests Test 04/21/19 16:15 04/22/19 04:10 04/23/19 04:40 04/23/19 04:45 Lactic Acid Level 1.1 mmol/L (0.4-2.0) White Blood Count 11.5 x10^3/uL (4.0-11.0) 14.8 x10^3/uL (4.0-11.0) Red Blood Count 4.24 x10^6/uL (4.30-5.70) 4.36 x10^6/uL (4.30-5.70) Hemoglobin 13.9 g/dL (13.0-17.5) 14.1 g/dL (13.0-17.5) Hematocrit 40.1 % (39.0-53.0) 41.3 % (39.0-53.0) Mean Corpuscular Volume 95 fL (79-100) 95 fL (79-100) Mean Corpuscular Hemoglobin 33 pg (25-35) 32 pg (25-35) Mean Corpuscular Hemoglobin Concent 35 g/dL (31-37) 34 g/dL (31-37) Red Cell Distribution Width 12.8 % (11.5-14.5) 12.6 % (11.5-14.5) Platelet Count 285 x10^3/uL (140-400) 287 x10^3/uL (140-400) Neutrophils (%) (Auto) 82 % (31-73) 88 % (31-73) Lymphocytes (%) (Auto) 7 % (24-48) 6 % (24-48) Monocytes (%) (Auto) 10 % (0-9) 6 % (0-9) Eosinophils (%) (Auto) 0 % (0-3) 0 % (0-3) Basophils (%) (Auto) 0 % (0-3) 0 % (0-3) Neutrophils # (Auto) 9.4 x10^3/uL (1.8-7.7) 13.1 x10^3/uL (1.8-7.7) Lymphocytes # (Auto) 0.8 x10^3/uL (1.0-4.8) 0.8 x10^3/uL (1.0-4.8) Monocytes # (Auto) 1.2 x10^3/uL (0.0-1.1) 0.8 x10^3/uL (0.0-1.1) Eosinophils # (Auto) 0.1 x10^3/uL (0.0-0.7) 0.0 x10^3/uL (0.0-0.7) Basophils # (Auto) 0.0 x10^3/uL (0.0-0.2) 0.0 x10^3/uL (0.0-0.2) Prothrombin Time 15.0 SEC (11.7-14.0) Prothromb Time International Ratio 1.2 (0.8-1.1) Sodium Level 142 mmol/L (136-145) 138 mmol/L (136-145) Potassium Level 4.1 mmol/L (3.5-5.1) 3.4 mmol/L (3.5-5.1) Chloride Level 106 mmol/L (98-107) 102 mmol/L (98-107) Carbon Dioxide Level 29 mmol/L (21-32) 28 mmol/L (21-32) Anion Gap 7 (6-14) 8 (6-14) Blood Urea Nitrogen 11 mg/dL (8-26) 9 mg/dL (8-26) Creatinine 1.0 mg/dL (0.7-1.3) 0.9 mg/dL (0.7-1.3) Estimated GFR (Cockcroft-Gault) 76.2 86.1 BUN/Creatinine Ratio 11 (6-20) Glucose Level 91 mg/dL (70-99) 101 mg/dL (70-99) Calcium Level 8.7 mg/dL (8.5-10.1) 8.7 mg/dL (8.5-10.1) Total Bilirubin 0.8 mg/dL (0.2-1.0) Aspartate Amino Transf (AST/SGOT) 15 U/L (15-37) Alanine Aminotransferase (ALT/SGPT) 30 U/L (16-63) Alkaline Phosphatase 62 U/L (46-116) Total Protein 6.4 g/dL (6.4-8.2) Albumin 2.6 g/dL (3.4-5.0) Albumin/Globulin Ratio 0.7 (1.0-1.7) Segmented Neutrophils % 86 % (35-66) Band Neutrophils % 7 % (0-9) Lymphocytes % 1 % (24-48) Monocytes % 6 % (0-10) Platelet Estimate Adequate (ADEQUATE) Laboratory Tests Test 04/23/19 04:40 04/23/19 04:45 White Blood Count 14.8 x10^3/uL (4.0-11.0) Red Blood Count 4.36 x10^6/uL (4.30-5.70) Hemoglobin 14.1 g/dL (13.0-17.5) Hematocrit 41.3 % (39.0-53.0) Mean Corpuscular Volume 95 fL (79-100) Mean Corpuscular Hemoglobin 32 pg (25-35) Mean Corpuscular Hemoglobin Concent 34 g/dL (31-37) Red Cell Distribution Width 12.6 % (11.5-14.5) Platelet Count 287 x10^3/uL (140-400) Neutrophils (%) (Auto) 88 % (31-73) Lymphocytes (%) (Auto) 6 % (24-48) Monocytes (%) (Auto) 6 % (0-9) Eosinophils (%) (Auto) 0 % (0-3) Basophils (%) (Auto) 0 % (0-3) Neutrophils # (Auto) 13.1 x10^3/uL (1.8-7.7) Lymphocytes # (Auto) 0.8 x10^3/uL (1.0-4.8) Monocytes # (Auto) 0.8 x10^3/uL (0.0-1.1) Eosinophils # (Auto) 0.0 x10^3/uL (0.0-0.7) Basophils # (Auto) 0.0 x10^3/uL (0.0-0.2) Segmented Neutrophils % 86 % (35-66) Band Neutrophils % 7 % (0-9) Lymphocytes % 1 % (24-48) Monocytes % 6 % (0-10) Platelet Estimate Adequate (ADEQUATE) Sodium Level 138 mmol/L (136-145) Potassium Level 3.4 mmol/L (3.5-5.1) Chloride Level 102 mmol/L (98-107) Carbon Dioxide Level 28 mmol/L (21-32) Anion Gap 8 (6-14) Blood Urea Nitrogen 9 mg/dL (8-26) Creatinine 0.9 mg/dL (0.7-1.3) Estimated GFR (Cockcroft-Gault) 86.1 Glucose Level 101 mg/dL (70-99) Calcium Level 8.7 mg/dL (8.5-10.1) leukocytosis Problem List pelvic abscess, s/p perc drainage leukocytosis continue supportive care po slowly serial labs HILDA WALKER MD Apr 23, 2019 13:54
--- NOTE | 2019-04-23 13:59 | PDOC ---
G I PROGRESS NOTE Subjective Sleeping. Did not awaken. Objective Others' notes reviewed. Physical Exam No PE. Review of Relevant I have reviewed the following items jessica (where applicable) has been applied. Labs Laboratory Tests Test 04/21/19 16:15 04/22/19 04:10 04/23/19 04:40 04/23/19 04:45 Lactic Acid Level 1.1 mmol/L (0.4-2.0) White Blood Count 11.5 x10^3/uL (4.0-11.0) 14.8 x10^3/uL (4.0-11.0) Red Blood Count 4.24 x10^6/uL (4.30-5.70) 4.36 x10^6/uL (4.30-5.70) Hemoglobin 13.9 g/dL (13.0-17.5) 14.1 g/dL (13.0-17.5) Hematocrit 40.1 % (39.0-53.0) 41.3 % (39.0-53.0) Mean Corpuscular Volume 95 fL (79-100) 95 fL (79-100) Mean Corpuscular Hemoglobin 33 pg (25-35) 32 pg (25-35) Mean Corpuscular Hemoglobin Concent 35 g/dL (31-37) 34 g/dL (31-37) Red Cell Distribution Width 12.8 % (11.5-14.5) 12.6 % (11.5-14.5) Platelet Count 285 x10^3/uL (140-400) 287 x10^3/uL (140-400) Neutrophils (%) (Auto) 82 % (31-73) 88 % (31-73) Lymphocytes (%) (Auto) 7 % (24-48) 6 % (24-48) Monocytes (%) (Auto) 10 % (0-9) 6 % (0-9) Eosinophils (%) (Auto) 0 % (0-3) 0 % (0-3) Basophils (%) (Auto) 0 % (0-3) 0 % (0-3) Neutrophils # (Auto) 9.4 x10^3/uL (1.8-7.7) 13.1 x10^3/uL (1.8-7.7) Lymphocytes # (Auto) 0.8 x10^3/uL (1.0-4.8) 0.8 x10^3/uL (1.0-4.8) Monocytes # (Auto) 1.2 x10^3/uL (0.0-1.1) 0.8 x10^3/uL (0.0-1.1) Eosinophils # (Auto) 0.1 x10^3/uL (0.0-0.7) 0.0 x10^3/uL (0.0-0.7) Basophils # (Auto) 0.0 x10^3/uL (0.0-0.2) 0.0 x10^3/uL (0.0-0.2) Prothrombin Time 15.0 SEC (11.7-14.0) Prothromb Time International Ratio 1.2 (0.8-1.1) Sodium Level 142 mmol/L (136-145) 138 mmol/L (136-145) Potassium Level 4.1 mmol/L (3.5-5.1) 3.4 mmol/L (3.5-5.1) Chloride Level 106 mmol/L (98-107) 102 mmol/L (98-107) Carbon Dioxide Level 29 mmol/L (21-32) 28 mmol/L (21-32) Anion Gap 7 (6-14) 8 (6-14) Blood Urea Nitrogen 11 mg/dL (8-26) 9 mg/dL (8-26) Creatinine 1.0 mg/dL (0.7-1.3) 0.9 mg/dL (0.7-1.3) Estimated GFR (Cockcroft-Gault) 76.2 86.1 BUN/Creatinine Ratio 11 (6-20) Glucose Level 91 mg/dL (70-99) 101 mg/dL (70-99) Calcium Level 8.7 mg/dL (8.5-10.1) 8.7 mg/dL (8.5-10.1) Total Bilirubin 0.8 mg/dL (0.2-1.0) Aspartate Amino Transf (AST/SGOT) 15 U/L (15-37) Alanine Aminotransferase (ALT/SGPT) 30 U/L (16-63) Alkaline Phosphatase 62 U/L (46-116) Total Protein 6.4 g/dL (6.4-8.2) Albumin 2.6 g/dL (3.4-5.0) Albumin/Globulin Ratio 0.7 (1.0-1.7) Segmented Neutrophils % 86 % (35-66) Band Neutrophils % 7 % (0-9) Lymphocytes % 1 % (24-48) Monocytes % 6 % (0-10) Platelet Estimate Adequate (ADEQUATE) Laboratory Tests Test 04/23/19 04:40 04/23/19 04:45 White Blood Count 14.8 x10^3/uL (4.0-11.0) Red Blood Count 4.36 x10^6/uL (4.30-5.70) Hemoglobin 14.1 g/dL (13.0-17.5) Hematocrit 41.3 % (39.0-53.0) Mean Corpuscular Volume 95 fL (79-100) Mean Corpuscular Hemoglobin 32 pg (25-35) Mean Corpuscular Hemoglobin Concent 34 g/dL (31-37) Red Cell Distribution Width 12.6 % (11.5-14.5) Platelet Count 287 x10^3/uL (140-400) Neutrophils (%) (Auto) 88 % (31-73) Lymphocytes (%) (Auto) 6 % (24-48) Monocytes (%) (Auto) 6 % (0-9) Eosinophils (%) (Auto) 0 % (0-3) Basophils (%) (Auto) 0 % (0-3) Neutrophils # (Auto) 13.1 x10^3/uL (1.8-7.7) Lymphocytes # (Auto) 0.8 x10^3/uL (1.0-4.8) Monocytes # (Auto) 0.8 x10^3/uL (0.0-1.1) Eosinophils # (Auto) 0.0 x10^3/uL (0.0-0.7) Basophils # (Auto) 0.0 x10^3/uL (0.0-0.2) Segmented Neutrophils % 86 % (35-66) Band Neutrophils % 7 % (0-9) Lymphocytes % 1 % (24-48) Monocytes % 6 % (0-10) Platelet Estimate Adequate (ADEQUATE) Sodium Level 138 mmol/L (136-145) Potassium Level 3.4 mmol/L (3.5-5.1) Chloride Level 102 mmol/L (98-107) Carbon Dioxide Level 28 mmol/L (21-32) Anion Gap 8 (6-14) Blood Urea Nitrogen 9 mg/dL (8-26) Creatinine 0.9 mg/dL (0.7-1.3) Estimated GFR (Cockcroft-Gault) 86.1 Glucose Level 101 mg/dL (70-99) Calcium Level 8.7 mg/dL (8.5-10.1) Gram stain, culture pending. Medications Current Medications Sodium Chloride 1,000 ml @ 100 mls/hr Q10H IV Last administered on 04/22/19 20:44; Start 04/21/19 at 16:00 Ondansetron HCl (Zofran) 4 mg PRN Q4HRS PRN IV NAUSEA/VOMITING Last administered on 04/22/19 20:38; Start 04/21/19 at 15:15 Piperacillin Sod/ Tazobactam Sod 3.375 gm/Sodium Chloride 50 ml @ 100 mls/hr Q8HRS IV Last administered on 04/23/19 06:16; Start 04/21/19 at 16:00 Metronidazole 100 ml @ 100 mls/hr Q8HRS IV Last administered on 04/23/19 06:16; Start 04/21/19 at 16:00 Morphine Sulfate (Morphine Sulfate) 4 mg PRN Q3HRS PRN IV PAIN; Start 04/21/19 at 15:30; Stop 04/21/19 at 15:53; Status DC Hydromorphone HCl (Dilaudid) 0.4 mg PRN Q4HRS PRN IVP PAIN Last administered on 04/21/19 20:20; Start 04/21/19 at 16:00; Stop 04/21/19 at 22:41; Status DC Hydromorphone HCl (Dilaudid) 0.4 mg PRN Q3HRS PRN IVP PAIN Last administered on 04/23/19 02:35; Start 04/21/19 at 22:45 Oxycodone/ Acetaminophen (Percocet 5/325) 1 tab PRN Q6HRS PRN PO MODERATE TO SEVERE PAIN Last administered on 04/23/19 06:16; Start 04/21/19 at 22:45 Heparin Sodium (Porcine) (Heparin Sodium) 5,000 unit Q12HR SQ Last administered on 04/23/19at 08:56; Start 04/21/19 at 22:45; Stop 04/23/19 at 12:08; Status DC Hydromorphone HCl (Dilaudid) 0.4 mg 1X ONCE IVP Last administered on 04/21/19at 22:57; Start 04/21/19 at 23:00; Stop 04/21/19 at 23:01; Status DC Midazolam HCl (Versed) 2 mg STK-MED ONCE .ROUTE ; Start 04/22/19 at 13:24; Stop 04/22/19 at 13:24; Status DC Fentanyl Citrate (Fentanyl 2ml Vial) 100 mcg STK-MED ONCE .ROUTE ; Start 04/22/19 at 13:24; Stop 04/22/19 at 13:24; Status DC Lidocaine HCl (Buffered Lidocaine 1%) 3 ml STK-MED ONCE .ROUTE ; Start 04/22/19 at 13:27; Stop 04/22/19 at 13:28; Status DC Lidocaine HCl (Buffered Lidocaine 1%) 3 ml 1X ONCE IJ Last administered on 04/22/19at 13:45; Start 04/22/19 at 13:45; Stop 04/22/19 at 13:46; Status DC Midazolam HCl (Versed) 2 mg 1X ONCE IV Last administered on 04/22/19at 14:03; Start 04/22/19 at 13:45; Stop 04/22/19 at 13:46; Status DC Fentanyl Citrate (Fentanyl 2ml Vial) 100 mcg 1X ONCE IV Last administered on 04/22/19at 14:03; Start 04/22/19 at 13:45; Stop 04/22/19 at 13:46; Status DC Acetaminophen (Tylenol) 650 mg PRN Q6HRS PRN PO MILD PAIN/TEMP; Start 04/23/19 at 00:00 Potassium Chloride (Klor-Con) 40 meq 1X ONCE PO ; Start 04/23/19 at 12:15; Stop 04/23/19 at 12:16; Status DC Enoxaparin Sodium (Lovenox Per Pharmacy Prophylaxis Dosing) 1 each PRN DAILY PRN MC SEE COMMENTS; Start 04/23/19 at 12:15 Enoxaparin Sodium (Lovenox 40mg Syringe) 40 mg Q24H SQ ; Start 04/23/19 at 13:00 Lactobacillus Rhamnosus (Culturelle) 1 cap BID PO ; Start 04/23/19 at 21:00 Active Scripts Active Reported No Known Medications Prior To Admisstion (Info) Each 1 Each 1X Vitals/I & O Vital Sign - Last 24 Hours 04/22/19 04/22/19 04/22/19 04/22/19 14:02 14:03 14:07 14:12 Pulse 90 91 83 Resp 20 15 12 12 B/P (MAP) 138/99 (112) 118/84 (95) Pulse Ox 94 94 94 O2 Delivery Nasal Cannula Nasal Cannula Nasal Cannula O2 Flow Rate 2.0 2.0 2.0 04/22/19 04/22/19 04/22/19 04/22/19 14:19 14:27 14:58 15:08 Pulse 88 89 81 Resp 20 18 B/P (MAP) 129/86 (100) 133/82 (99) Pulse Ox 95 96 96 91 O2 Delivery Nasal Cannula Nasal Cannula Room Air O2 Flow Rate 2.0 2.0 04/22/19 04/22/19 04/22/19 04/22/19 15:13 15:18 15:23 15:28 Pulse 77 82 85 81 B/P (MAP) 135/85 (102) 135/86 (102) 143/85 (104) 133/81 (98) Pulse Ox 93 93 93 83 04/22/19 04/22/19 04/22/19 04/22/19 15:33 15:35 17:23 18:20 B/P (MAP) 134/83 (100) Pulse Ox 96 96 96 O2 Delivery Room Air Room Air Room Air 04/22/19 04/22/19 04/22/19 04/22/19 19:00 20:00 20:39 21:09 Temp 99.6 99.6 Pulse 94 Resp 20 20 B/P (MAP) 135/83 (100) Pulse Ox 94 O2 Delivery Room Air Room Air Room Air Room Air 04/22/19 04/22/19 04/23/19 04/23/19 23:06 23:23 00:23 02:35 Temp 99.0 99.0 Pulse 96 Resp 20 20 20 B/P (MAP) 141/82 (101) Pulse Ox 91 O2 Delivery Room Air Room Air Room Air Room Air 04/23/19 04/23/19 04/23/19 04/23/19 03:05 03:06 06:16 07:00 Temp 98.7 98.1 98.7 98.1 Pulse 93 88 Resp 20 18 B/P (MAP) 129/69 (89) 135/77 (96) Pulse Ox 92 94 O2 Delivery Room Air Room Air Room Air Room Air 04/23/19 04/23/19 04/23/19 07:16 07:30 11:00 Temp 97.7 97.7 Pulse 90 Resp 18 B/P (MAP) 140/84 (102) Pulse Ox 93 O2 Delivery Room Air Room Air Room Air Intake and Output 04/22/19 04/22/19 04/23/19 15:00 23:00 07:00 Output Total 500 ml 370 ml Balance -500 ml -370 ml Assessment Pelvic abcess, s/p perc drainage. Source unclear. Plan of Care: Continue current Tx, Mgmt Plan of Care Note Await culture, etc. NICOLE MILLAN MD Apr 23, 2019 13:58
[2019-04-23] MEDS: DOCUSATE SODIUM 100 MG CAPSULE. PO SCH (14:00)
--- NOTE | 2019-04-23 14:14 | PDOC ---
PROGRESS NOTES Chief Complaint Chief Complaint A/P: Intra-abdominal abscess - possibly perforated diverticulitis sherry Yoo. general surgery following, drain placed in IR 04/22 Sepsis - 2/2 abdominal abscess with leukocytosis and tachycardia, cont IVF and antibiotics Liver mass - no h/o liver disease. GI consulted. He should have this further evaluated at some point, will order US Elevated INR - possibly 2/2 poor nutritional status recently. Will monitor Pulmonary nodule - incidental finding, based on size we have advised him of a need for 6 month f/u. History of Present Illness History of Present Illness Mr Ortiz is a 58-year-old male retired [employer] w/ PMHx of remote anal fissure surgery, otherwise healthy who presents with lower abdominal discomfort for the past 2 weeks that has been progressive. He has been taking stool softeners and psyllium per his PCP as he also had some constipation early on, but has been having bowel movements, however, he experiences pain and tenesmus. As he did not improve he was referred in by his primary doctor to go to the ED at [facility]. His pain was rated 8/10 and suprapubic and LLQ. Upon CT scan he was found with large abscess identified in the right lower quadrant abdomen abutting the redundant sigmoid colon and cecum. He was called for admission to [facility] as general surgery is not available at [facility]. WBC 13K with left shift, glucose 108, otherwise no abnormalities on labs, he is tachycardic, meets sepsis criteria. He has never had a screening colonoscopy. 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 Lives with his family. He drinks 3-4 beers per night, but has not had a drink since 2 weeks ago. Overnight lost IV access, had significant pain, likely did not receive a full dose of dilaudid, after reinsertion of IV his pain is better with meds. He did have a small BM this morning. Plans for IR drain today. No CP or SOB Vitals Vitals Vital Signs Date Time Temp Pulse Resp B/P (MAP) Pulse Ox O2 Delivery O2 Flow Rate FiO2 04/23/19 11:00 97.7 90 18 140/84 (102) 93 Room Air 97.7 04/22/19 14:27 2.0 Physical Exam General: Alert, No acute distress Heart: Regular rate, Other Lungs: Clear Abdomen: Soft, Other (mildly TTP lower quadrants) Extremities: No clubbing, No cyanosis, No edema, Normal pulses, No tenderness/swelling Skin: No rashes, No breakdown, No significant lesion Labs LABS Laboratory Tests Test 04/23/19 04:40 04/23/19 04:45 White Blood Count 14.8 x10^3/uL (4.0-11.0) Red Blood Count 4.36 x10^6/uL (4.30-5.70) Hemoglobin 14.1 g/dL (13.0-17.5) Hematocrit 41.3 % (39.0-53.0) Mean Corpuscular Volume 95 fL (79-100) Mean Corpuscular Hemoglobin 32 pg (25-35) Mean Corpuscular Hemoglobin Concent 34 g/dL (31-37) Red Cell Distribution Width 12.6 % (11.5-14.5) Platelet Count 287 x10^3/uL (140-400) Neutrophils (%) (Auto) 88 % (31-73) Lymphocytes (%) (Auto) 6 % (24-48) Monocytes (%) (Auto) 6 % (0-9) Eosinophils (%) (Auto) 0 % (0-3) Basophils (%) (Auto) 0 % (0-3) Neutrophils # (Auto) 13.1 x10^3/uL (1.8-7.7) Lymphocytes # (Auto) 0.8 x10^3/uL (1.0-4.8) Monocytes # (Auto) 0.8 x10^3/uL (0.0-1.1) Eosinophils # (Auto) 0.0 x10^3/uL (0.0-0.7) Basophils # (Auto) 0.0 x10^3/uL (0.0-0.2) Segmented Neutrophils % 86 % (35-66) Band Neutrophils % 7 % (0-9) Lymphocytes % 1 % (24-48) Monocytes % 6 % (0-10) Platelet Estimate Adequate (ADEQUATE) Sodium Level 138 mmol/L (136-145) Potassium Level 3.4 mmol/L (3.5-5.1) Chloride Level 102 mmol/L (98-107) Carbon Dioxide Level 28 mmol/L (21-32) Anion Gap 8 (6-14) Blood Urea Nitrogen 9 mg/dL (8-26) Creatinine 0.9 mg/dL (0.7-1.3) Estimated GFR (Cockcroft-Gault) 86.1 Glucose Level 101 mg/dL (70-99) Calcium Level 8.7 mg/dL (8.5-10.1) Review of Systems Review of Systems poor PO intake, will advance diet, add supplement shakes, nutrition is poor Comment Review of Relevant I have reviewed the following items jessica (where applicable) has been applied. Labs Laboratory Tests Test 04/21/19 16:15 04/22/19 04:10 04/23/19 04:40 04/23/19 04:45 Lactic Acid Level 1.1 mmol/L (0.4-2.0) White Blood Count 11.5 x10^3/uL (4.0-11.0) 14.8 x10^3/uL (4.0-11.0) Red Blood Count 4.24 x10^6/uL (4.30-5.70) 4.36 x10^6/uL (4.30-5.70) Hemoglobin 13.9 g/dL (13.0-17.5) 14.1 g/dL (13.0-17.5) Hematocrit 40.1 % (39.0-53.0) 41.3 % (39.0-53.0) Mean Corpuscular Volume 95 fL (79-100) 95 fL (79-100) Mean Corpuscular Hemoglobin 33 pg (25-35) 32 pg (25-35) Mean Corpuscular Hemoglobin Concent 35 g/dL (31-37) 34 g/dL (31-37) Red Cell Distribution Width 12.8 % (11.5-14.5) 12.6 % (11.5-14.5) Platelet Count 285 x10^3/uL (140-400) 287 x10^3/uL (140-400) Neutrophils (%) (Auto) 82 % (31-73) 88 % (31-73) Lymphocytes (%) (Auto) 7 % (24-48) 6 % (24-48) Monocytes (%) (Auto) 10 % (0-9) 6 % (0-9) Eosinophils (%) (Auto) 0 % (0-3) 0 % (0-3) Basophils (%) (Auto) 0 % (0-3) 0 % (0-3) Neutrophils # (Auto) 9.4 x10^3/uL (1.8-7.7) 13.1 x10^3/uL (1.8-7.7) Lymphocytes # (Auto) 0.8 x10^3/uL (1.0-4.8) 0.8 x10^3/uL (1.0-4.8) Monocytes # (Auto) 1.2 x10^3/uL (0.0-1.1) 0.8 x10^3/uL (0.0-1.1) Eosinophils # (Auto) 0.1 x10^3/uL (0.0-0.7) 0.0 x10^3/uL (0.0-0.7) Basophils # (Auto) 0.0 x10^3/uL (0.0-0.2) 0.0 x10^3/uL (0.0-0.2) Prothrombin Time 15.0 SEC (11.7-14.0) Prothromb Time International Ratio 1.2 (0.8-1.1) Sodium Level 142 mmol/L (136-145) 138 mmol/L (136-145) Potassium Level 4.1 mmol/L (3.5-5.1) 3.4 mmol/L (3.5-5.1) Chloride Level 106 mmol/L (98-107) 102 mmol/L (98-107) Carbon Dioxide Level 29 mmol/L (21-32) 28 mmol/L (21-32) Anion Gap 7 (6-14) 8 (6-14) Blood Urea Nitrogen 11 mg/dL (8-26) 9 mg/dL (8-26) Creatinine 1.0 mg/dL (0.7-1.3) 0.9 mg/dL (0.7-1.3) Estimated GFR (Cockcroft-Gault) 76.2 86.1 BUN/Creatinine Ratio 11 (6-20) Glucose Level 91 mg/dL (70-99) 101 mg/dL (70-99) Calcium Level 8.7 mg/dL (8.5-10.1) 8.7 mg/dL (8.5-10.1) Total Bilirubin 0.8 mg/dL (0.2-1.0) Aspartate Amino Transf (AST/SGOT) 15 U/L (15-37) Alanine Aminotransferase (ALT/SGPT) 30 U/L (16-63) Alkaline Phosphatase 62 U/L (46-116) Total Protein 6.4 g/dL (6.4-8.2) Albumin 2.6 g/dL (3.4-5.0) Albumin/Globulin Ratio 0.7 (1.0-1.7) Segmented Neutrophils % 86 % (35-66) Band Neutrophils % 7 % (0-9) Lymphocytes % 1 % (24-48) Monocytes % 6 % (0-10) Platelet Estimate Adequate (ADEQUATE) Laboratory Tests Test 04/23/19 04:40 04/23/19 04:45 White Blood Count 14.8 x10^3/uL (4.0-11.0) Red Blood Count 4.36 x10^6/uL (4.30-5.70) Hemoglobin 14.1 g/dL (13.0-17.5) Hematocrit 41.3 % (39.0-53.0) Mean Corpuscular Volume 95 fL (79-100) Mean Corpuscular Hemoglobin 32 pg (25-35) Mean Corpuscular Hemoglobin Concent 34 g/dL (31-37) Red Cell Distribution Width 12.6 % (11.5-14.5) Platelet Count 287 x10^3/uL (140-400) Neutrophils (%) (Auto) 88 % (31-73) Lymphocytes (%) (Auto) 6 % (24-48) Monocytes (%) (Auto) 6 % (0-9) Eosinophils (%) (Auto) 0 % (0-3) Basophils (%) (Auto) 0 % (0-3) Neutrophils # (Auto) 13.1 x10^3/uL (1.8-7.7) Lymphocytes # (Auto) 0.8 x10^3/uL (1.0-4.8) Monocytes # (Auto) 0.8 x10^3/uL (0.0-1.1) Eosinophils # (Auto) 0.0 x10^3/uL (0.0-0.7) Basophils # (Auto) 0.0 x10^3/uL (0.0-0.2) Segmented Neutrophils % 86 % (35-66) Band Neutrophils % 7 % (0-9) Lymphocytes % 1 % (24-48) Monocytes % 6 % (0-10) Platelet Estimate Adequate (ADEQUATE) Sodium Level 138 mmol/L (136-145) Potassium Level 3.4 mmol/L (3.5-5.1) Chloride Level 102 mmol/L (98-107) Carbon Dioxide Level 28 mmol/L (21-32) Anion Gap 8 (6-14) Blood Urea Nitrogen 9 mg/dL (8-26) Creatinine 0.9 mg/dL (0.7-1.3) Estimated GFR (Cockcroft-Gault) 86.1 Glucose Level 101 mg/dL (70-99) Calcium Level 8.7 mg/dL (8.5-10.1) Medications Current Medications Sodium Chloride 1,000 ml @ 100 mls/hr Q10H IV Last administered on 04/22/19at 20:44; Start 04/21/19 at 16:00 Ondansetron HCl (Zofran) 4 mg PRN Q4HRS PRN IV NAUSEA/VOMITING Last administered on 04/22/19at 20:38; Start 04/21/19 at 15:15 Piperacillin Sod/ Tazobactam Sod 3.375 gm/Sodium Chloride 50 ml @ 100 mls/hr Q8HRS IV Last administered on 04/23/19 06:16; Start 04/21/19 at 16:00 Metronidazole 100 ml @ 100 mls/hr Q8HRS IV Last administered on 04/23/19at 06:1 6; Start 04/21/19 at 16:00 Morphine Sulfate (Morphine Sulfate) 4 mg PRN Q3HRS PRN IV PAIN; Start 04/21/19 at 15:30; Stop 04/21/19 at 15:53; Status DC Hydromorphone HCl (Dilaudid) 0.4 mg PRN Q4HRS PRN IVP PAIN Last administered on 04/21/19at 20:20; Start 04/21/19 at 16:00; Stop 04/21/19 at 22:41; Status DC Hydromorphone HCl (Dilaudid) 0.4 mg PRN Q3HRS PRN IVP PAIN Last administered on 04/23/19at 02:35; Start 04/21/19 at 22:45 Oxycodone/ Acetaminophen (Percocet 5/325) 1 tab PRN Q6HRS PRN PO MODERATE TO SE EDITH PAIN Last administered on 04/23/19at 06:16; Start 04/21/19 at 22:45 Heparin Sodium (Porcine) (Heparin Sodium) 5,000 unit Q12HR SQ Last administered on 04/23/19at 08:56; Start 04/21/19 at 22:45; Stop 04/23/19 at 12:08; Status DC Hydromorphone HCl (Dilaudid) 0.4 mg 1X ONCE IVP Last administered on 04/21/19at 22:57; Start 04/21/19 at 23:00; Stop 04/21/19 at 23:01; Status DC Midazolam HCl (Versed) 2 mg STK-MED ONCE .ROUTE ; Start 04/22/19 at 13:24; Stop 04/22/19 at 13:24; Status DC Fentanyl Citrate (Fentanyl 2ml Vial) 100 mcg STK-MED ONCE .ROUTE ; Start 04/22/19 at 13:24; Stop 04/22/19 at 13:24; Status DC Lidocaine HCl (Buffered Lidocaine 1%) 3 ml STK-MED ONCE .ROUTE ; Start 04/22/19 at 13:27; Stop 04/22/19 at 13:28; Status DC Lidocaine HCl (Buffered Lidocaine 1%) 3 ml 1X ONCE IJ Last administered on 04/22/19at 13:45; Start 04/22/19 at 13:45; Stop 04/22/19 at 13:46; Status DC Midazolam HCl (Versed) 2 mg 1X ONCE IV Last administered on 04/22/19 14:03; Start 04/22/19 at 13:45; Stop 04/22/19 at 13:46; Status DC Fentanyl Citrate (Fentanyl 2ml Vial) 100 mcg 1X ONCE IV Last administered on 04/22/19 14:03; Start 04/22/19 at 13:45; Stop 04/22/19 at 13:46; Status DC Acetaminophen (Tylenol) 650 mg PRN Q6HRS PRN PO MILD PAIN/TEMP; Start 04/23/19 at 00:00 Potassium Chloride (Klor-Con) 40 meq 1X ONCE PO ; Start 04/23/19 at 12:15; Stop 04/23/19 at 12:16; Status DC Enoxaparin Sodium (Lovenox Per Pharmacy Prophylaxis Dosing) 1 each PRN DAILY PRN MC SEE COMMENTS; Start 04/23/19 at 12:15 Enoxaparin Sodium (Lovenox 40mg Syringe) 40 mg Q24H SQ ; Start 04/23/19 at 13:00 Lactobacillus Rhamnosus (Culturelle) 1 cap BID PO ; Start 04/23/19 at 21:00 Active Scripts Active Reported No Known Medications Prior To Admisstion (Info) Each 1 Each MC 1X Vitals/I & O Vital Sign - Last 24 Hours 04/22/19 04/22/19 04/22/19 04/22/19 14:19 14:27 14:58 15:08 Pulse 88 89 81 Resp 20 18 B/P (MAP) 129/86 (100) 133/82 (99) Pulse Ox 95 96 96 91 O2 Delivery Nasal Cannula Nasal Cannula Room Air O2 Flow Rate 2.0 2.0 04/22/19 04/22/19 04/22/19 04/22/19 15:13 15:18 15:23 15:28 Pulse 77 82 85 81 B/P (MAP) 135/85 (102) 135/86 (102) 143/85 (104) 133/81 (98) Pulse Ox 93 93 93 83 04/22/19 04/22/19 04/22/19 04/22/19 15:33 15:35 17:23 18:20 B/P (MAP) 134/83 (100) Pulse Ox 96 96 96 O2 Delivery Room Air Room Air Room Air 04/22/19 04/22/19 04/22/19 04/22/19 19:00 20:00 20:39 21:09 Temp 99.6 99.6 Pulse 94 Resp 20 20 B/P (MAP) 135/83 (100) Pulse Ox 94 O2 Delivery Room Air Room Air Room Air Room Air 04/22/19 04/22/19 04/23/19 04/23/19 23:06 23:23 00:23 02:35 Temp 99.0 99.0 Pulse 96 Resp 20 20 20 B/P (MAP) 141/82 (101) Pulse Ox 91 O2 Delivery Room Air Room Air Room Air Room Air 04/23/19 04/23/19 04/23/19 04/23/19 03:05 03:06 06:16 07:00 Temp 98.7 98.1 98.7 98.1 Pulse 93 88 Resp 20 18 B/P (MAP) 129/69 (89) 135/77 (96) Pulse Ox 92 94 O2 Delivery Room Air Room Air Room Air Room Air 04/23/19 04/23/19 04/23/19 07:16 07:30 11:00 Temp 97.7 97.7 Pulse 90 Resp 18 B/P (MAP) 140/84 (102) Pulse Ox 93 O2 Delivery Room Air Room Air Room Air Intake and Output 04/22/19 04/22/19 04/23/19 15:00 23:00 07:00 Output Total 500 ml 370 ml Balance -500 ml -370 ml MICH BARRIOS MD Apr 23, 2019 14:14
[2019-04-23] MEDS ORDERED: DOCUSATE SODIUM 100 MG CAPSULE. PO PRN (14:15)
[2019-04-23] MEDS ORDERED: POLYETHYLENE GLYCOL 3350 17 GM PACKET. PO PRN (14:15)
[2019-04-23] MEDS: ENOXAPARIN 40 MG/0.4 ML SYRINGE. SQ SCH (14:21)
[2019-04-23] MEDS: IV NORMAL SALINE 1000ML BAG 1,000 ML IV SCH ×2 (14:22→23:50)
[2019-04-23 15:00] VITALS: BP 126/83
[2019-04-23 19:00] VITALS: BP 134/81
[2019-04-23] MEDS: LACTOBACILLUS RHAMNOSUS GG 1 CAPSULE. PO SCH (22:34)
[2019-04-23 23:00] VITALS: BP 129/73
[2019-04-24 03:00] VITALS: BP 138/81
[2019-04-24] MEDS: PIPERACILLIN/TAZOBACTAM 3.375 GM in IV NORMAL SALINE 50ML 50 ML IV SCH ×3 (05:36→22:02)
[2019-04-24 07:00] VITALS: BP 146/87
[2019-04-24] MEDS: LACTOBACILLUS RHAMNOSUS GG 1 CAPSULE. PO SCH ×2 (08:25→22:02)
[2019-04-24] MEDS: DOCUSATE SODIUM 100 MG CAPSULE. PO SCH (08:25)
[2019-04-24] MEDS: ONDANSETRON PF 4 MG/2 ML VIAL. IV PRN (08:27)
[2019-04-24] MEDS: IV NORMAL SALINE 1000ML BAG 1,000 ML IV SCH ×2 (08:28→14:00)
--- NOTE | 2019-04-24 08:30 | NUR ---
Flushed BUTCH with 10cc of saline as ordered.
[2019-04-24 11:00] VITALS: BP 131/86
[2019-04-24 11:32] LABS: BASO % 0 % (0-3); EOS # 0.1 x10^3/uL (0.0-0.7); EOS % 1 % (0-3); HEMOGLOBIN 13.4 g/dL (13.0-17.5); LYMPH # 0.9 x10^3/uL (1.0-4.8); LYMPH % 7 % (24-48); MEAN CORPUSCULAR HEMOGLOBIN 32 pg (25-35); MEAN CORPUSCULAR HGB CONC 34 g/dL (31-37); MEAN CORPUSCULAR VOLUME 94 fL (79-100); MONO % 8 % (0-9); NEUT # 10.9 x10^3/uL (1.8-7.7); NEUT % 85 % (31-73); PLATELET COUNT 284 x10^3/uL (140-400); RED BLOOD COUNT 4.14 x10^6/uL (4.30-5.70); RED CELL DISTRIBUTION WIDTH 12.7 % (11.5-14.5); WHITE BLOOD COUNT 12.9 x10^3/uL (4.0-11.0)
[2019-04-24 11:42] LABS: CALCIUM 8.3 mg/dL (8.5-10.1); CREATININE 0.7 mg/dL (0.7-1.3); POTASSIUM 3.7 mmol/L (3.5-5.1)
--- NOTE | 2019-04-24 12:22 | PDOC ---
SURGICAL PROGRESS NOTE Subjective had some emesis this AM better now painful when turns to his right Vital Signs Vital Signs Date Time Temp Pulse Resp B/P (MAP) Pulse Ox O2 Delivery O2 Flow Rate FiO2 04/24/19 11:00 97.5 85 18 131/86 (101) 96 Room Air 97.5 Tmax 100.4 I&O Intake and Output 04/24/19 07:00 Intake Total 1030 ml Output Total 750 ml Balance 280 ml Intake Oral 780 ml IV Total 250 ml Output Urine Total 700 ml Drainage Total 50 ml PATIENT HAS A ALEJANDRO: No General: Alert, Oriented X3, No acute distress Abdomen: Soft, Other (BUTCH with some purulent drainage) Labs Laboratory Tests Test 04/23/19 04:40 04/23/19 04:45 04/24/19 11:25 White Blood Count 14.8 x10^3/uL (4.0-11.0) 12.9 x10^3/uL (4.0-11.0) Red Blood Count 4.36 x10^6/uL (4.30-5.70) 4.14 x10^6/uL (4.30-5.70) Hemoglobin 14.1 g/dL (13.0-17.5) 13.4 g/dL (13.0-17.5) Hematocrit 41.3 % (39.0-53.0) 39.0 % (39.0-53.0) Mean Corpuscular Volume 95 fL (79-100) 94 fL (79-100) Mean Corpuscular Hemoglobin 32 pg (25-35) 32 pg (25-35) Mean Corpuscular Hemoglobin Concent 34 g/dL (31-37) 34 g/dL (31-37) Red Cell Distribution Width 12.6 % (11.5-14.5) 12.7 % (11.5-14.5) Platelet Count 287 x10^3/uL (140-400) 284 x10^3/uL (140-400) Neutrophils (%) (Auto) 88 % (31-73) 85 % (31-73) Lymphocytes (%) (Auto) 6 % (24-48) 7 % (24-48) Monocytes (%) (Auto) 6 % (0-9) 8 % (0-9) Eosinophils (%) (Auto) 0 % (0-3) 1 % (0-3) Basophils (%) (Auto) 0 % (0-3) 0 % (0-3) Neutrophils # (Auto) 13.1 x10^3/uL (1.8-7.7) 10.9 x10^3/uL (1.8-7.7) Lymphocytes # (Auto) 0.8 x10^3/uL (1.0-4.8) 0.9 x10^3/uL (1.0-4.8) Monocytes # (Auto) 0.8 x10^3/uL (0.0-1.1) 1.0 x10^3/uL (0.0-1.1) Eosinophils # (Auto) 0.0 x10^3/uL (0.0-0.7) 0.1 x10^3/uL (0.0-0.7) Basophils # (Auto) 0.0 x10^3/uL (0.0-0.2) 0.0 x10^3/uL (0.0-0.2) Segmented Neutrophils % 86 % (35-66) Band Neutrophils % 7 % (0-9) Lymphocytes % 1 % (24-48) Monocytes % 6 % (0-10) Platelet Estimate Adequate (ADEQUATE) Sodium Level 138 mmol/L (136-145) 141 mmol/L (136-145) Potassium Level 3.4 mmol/L (3.5-5.1) 3.7 mmol/L (3.5-5.1) Chloride Level 102 mmol/L (98-107) 106 mmol/L (98-107) Carbon Dioxide Level 28 mmol/L (21-32) 28 mmol/L (21-32) Anion Gap 8 (6-14) 7 (6-14) Blood Urea Nitrogen 9 mg/dL (8-26) 7 mg/dL (8-26) Creatinine 0.9 mg/dL (0.7-1.3) 0.7 mg/dL (0.7-1.3) Estimated GFR (Cockcroft-Gault) 86.1 115.0 Glucose Level 101 mg/dL (70-99) 106 mg/dL (70-99) Calcium Level 8.7 mg/dL (8.5-10.1) 8.3 mg/dL (8.5-10.1) Laboratory Tests Test 04/24/19 11:25 White Blood Count 12.9 x10^3/uL (4.0-11.0) Red Blood Count 4.14 x10^6/uL (4.30-5.70) Hemoglobin 13.4 g/dL (13.0-17.5) Hematocrit 39.0 % (39.0-53.0) Mean Corpuscular Volume 94 fL (79-100) Mean Corpuscular Hemoglobin 32 pg (25-35) Mean Corpuscular Hemoglobin Concent 34 g/dL (31-37) Red Cell Distribution Width 12.7 % (11.5-14.5) Platelet Count 284 x10^3/uL (140-400) Neutrophils (%) (Auto) 85 % (31-73) Lymphocytes (%) (Auto) 7 % (24-48) Monocytes (%) (Auto) 8 % (0-9) Eosinophils (%) (Auto) 1 % (0-3) Basophils (%) (Auto) 0 % (0-3) Neutrophils # (Auto) 10.9 x10^3/uL (1.8-7.7) Lymphocytes # (Auto) 0.9 x10^3/uL (1.0-4.8) Monocytes # (Auto) 1.0 x10^3/uL (0.0-1.1) Eosinophils # (Auto) 0.1 x10^3/uL (0.0-0.7) Basophils # (Auto) 0.0 x10^3/uL (0.0-0.2) Sodium Level 141 mmol/L (136-145) Potassium Level 3.7 mmol/L (3.5-5.1) Chloride Level 106 mmol/L (98-107) Carbon Dioxide Level 28 mmol/L (21-32) Anion Gap 7 (6-14) Blood Urea Nitrogen 7 mg/dL (8-26) Creatinine 0.7 mg/dL (0.7-1.3) Estimated GFR (Cockcroft-Gault) 115.0 Glucose Level 106 mg/dL (70-99) Calcium Level 8.3 mg/dL (8.5-10.1) WBC down Assessment/Plan pelvic abscess, s/p perc drainage go slow with po intake continue abx HILDA WALKER MD Apr 24, 2019 12:22
--- NOTE | 2019-04-24 13:37 | PDOC ---
G I PROGRESS NOTE Subjective Tried regular diet, but vomited. Backing off. Still with pain at drain site. Physical Exam Lungs clear. RRR Abdomen soft with RLQ tenderness. Drain output less purulent. Review of Relevant I have reviewed the following items jessica (where applicable) has been applied. Labs Laboratory Tests Test 04/23/19 04:40 04/23/19 04:45 04/24/19 11:25 White Blood Count 14.8 x10^3/uL (4.0-11.0) 12.9 x10^3/uL (4.0-11.0) Red Blood Count 4.36 x10^6/uL (4.30-5.70) 4.14 x10^6/uL (4.30-5.70) Hemoglobin 14.1 g/dL (13.0-17.5) 13.4 g/dL (13.0-17.5) Hematocrit 41.3 % (39.0-53.0) 39.0 % (39.0-53.0) Mean Corpuscular Volume 95 fL (79-100) 94 fL (79-100) Mean Corpuscular Hemoglobin 32 pg (25-35) 32 pg (25-35) Mean Corpuscular Hemoglobin Concent 34 g/dL (31-37) 34 g/dL (31-37) Red Cell Distribution Width 12.6 % (11.5-14.5) 12.7 % (11.5-14.5) Platelet Count 287 x10^3/uL (140-400) 284 x10^3/uL (140-400) Neutrophils (%) (Auto) 88 % (31-73) 85 % (31-73) Lymphocytes (%) (Auto) 6 % (24-48) 7 % (24-48) Monocytes (%) (Auto) 6 % (0-9) 8 % (0-9) Eosinophils (%) (Auto) 0 % (0-3) 1 % (0-3) Basophils (%) (Auto) 0 % (0-3) 0 % (0-3) Neutrophils # (Auto) 13.1 x10^3/uL (1.8-7.7) 10.9 x10^3/uL (1.8-7.7) Lymphocytes # (Auto) 0.8 x10^3/uL (1.0-4.8) 0.9 x10^3/uL (1.0-4.8) Monocytes # (Auto) 0.8 x10^3/uL (0.0-1.1) 1.0 x10^3/uL (0.0-1.1) Eosinophils # (Auto) 0.0 x10^3/uL (0.0-0.7) 0.1 x10^3/uL (0.0-0.7) Basophils # (Auto) 0.0 x10^3/uL (0.0-0.2) 0.0 x10^3/uL (0.0-0.2) Segmented Neutrophils % 86 % (35-66) Band Neutrophils % 7 % (0-9) Lymphocytes % 1 % (24-48) Monocytes % 6 % (0-10) Platelet Estimate Adequate (ADEQUATE) Sodium Level 138 mmol/L (136-145) 141 mmol/L (136-145) Potassium Level 3.4 mmol/L (3.5-5.1) 3.7 mmol/L (3.5-5.1) Chloride Level 102 mmol/L (98-107) 106 mmol/L (98-107) Carbon Dioxide Level 28 mmol/L (21-32) 28 mmol/L (21-32) Anion Gap 8 (6-14) 7 (6-14) Blood Urea Nitrogen 9 mg/dL (8-26) 7 mg/dL (8-26) Creatinine 0.9 mg/dL (0.7-1.3) 0.7 mg/dL (0.7-1.3) Estimated GFR (Cockcroft-Gault) 86.1 115.0 Glucose Level 101 mg/dL (70-99) 106 mg/dL (70-99) Calcium Level 8.7 mg/dL (8.5-10.1) 8.3 mg/dL (8.5-10.1) Laboratory Tests Test 04/24/19 11:25 White Blood Count 12.9 x10^3/uL (4.0-11.0) Red Blood Count 4.14 x10^6/uL (4.30-5.70) Hemoglobin 13.4 g/dL (13.0-17.5) Hematocrit 39.0 % (39.0-53.0) Mean Corpuscular Volume 94 fL (79-100) Mean Corpuscular Hemoglobin 32 pg (25-35) Mean Corpuscular Hemoglobin Concent 34 g/dL (31-37) Red Cell Distribution Width 12.7 % (11.5-14.5) Platelet Count 284 x10^3/uL (140-400) Neutrophils (%) (Auto) 85 % (31-73) Lymphocytes (%) (Auto) 7 % (24-48) Monocytes (%) (Auto) 8 % (0-9) Eosinophils (%) (Auto) 1 % (0-3) Basophils (%) (Auto) 0 % (0-3) Neutrophils # (Auto) 10.9 x10^3/uL (1.8-7.7) Lymphocytes # (Auto) 0.9 x10^3/uL (1.0-4.8) Monocytes # (Auto) 1.0 x10^3/uL (0.0-1.1) Eosinophils # (Auto) 0.1 x10^3/uL (0.0-0.7) Basophils # (Auto) 0.0 x10^3/uL (0.0-0.2) Sodium Level 141 mmol/L (136-145) Potassium Level 3.7 mmol/L (3.5-5.1) Chloride Level 106 mmol/L (98-107) Carbon Dioxide Level 28 mmol/L (21-32) Anion Gap 7 (6-14) Blood Urea Nitrogen 7 mg/dL (8-26) Creatinine 0.7 mg/dL (0.7-1.3) Estimated GFR (Cockcroft-Gault) 115.0 Glucose Level 106 mg/dL (70-99) Calcium Level 8.3 mg/dL (8.5-10.1) Microbiology 04/22/19 Anaerobic/Aerobic Culture, Resulted Pending 04/22/19 Anaerobic Culture Result 1 (PELON), Resulted Pending 04/22/19 Aerobic Culture, Resulted Pending 04/22/19 Aerobic Culture Result 1 (PELON), Resulted Pending 04/22/19 Gram Stain - Final, Resulted 04/22/19 Gram Stain Result 1 (PELON) - Final, Resulted 04/22/19 Gram Stain Result 2 (PELON) - Final, Resulted Vitals/I & O Vital Sign - Last 24 Hours 04/23/19 04/23/19 04/23/19 04/23/19 14:23 14:53 15:00 19:00 Temp 98.9 98.3 98.9 98.3 Pulse 94 96 Resp 22 20 16 18 B/P (MAP) 126/83 (97) 134/81 (98) Pulse Ox 93 93 93 93 O2 Delivery Room Air Room Air Room Air Room Air 04/23/19 04/23/19 04/24/19 04/24/19 20:00 23:00 03:00 07:00 Temp 100.4 99.4 97.5 100.4 99.4 97.5 Pulse 98 93 82 Resp 18 18 18 B/P (MAP) 129/73 (91) 138/81 (100) 146/87 (106) Pulse Ox 94 92 95 O2 Delivery Room Air Room Air Room Air Room Air 04/24/19 04/24/19 08:00 11:00 Temp 97.5 97.5 Pulse 85 Resp 18 B/P (MAP) 131/86 (101) Pulse Ox 96 O2 Delivery Room Air Room Air Intake and Output 04/23/19 04/23/19 04/24/19 14:59 22:59 06:59 Intake Total 330 ml 700 ml Output Total 50 ml 700 ml Balance 330 ml 650 ml -700 ml Assessment Abd/pelvic abcess, post-perc drainage. Plan of Care: Continue current Tx, Mgmt Plan of Care Note Timing of operative intervention per surgery service. NICOLE MILLAN MD Apr 24, 2019 13:37
--- NOTE | 2019-04-24 13:48 | PDOC ---
PROGRESS NOTES Chief Complaint Chief Complaint A/P: Intra-abdominal abscess - possibly perforated diverticulitis sherry Yoo. general surgery following, drain placed in IR 04/22 Sepsis - 2/2 abdominal abscess with leukocytosis and tachycardia, cont IVF and antibiotics Liver mass - no h/o liver disease. GI consulted. He should have this further evaluated at some point, will order US Elevated INR - possibly 2/2 poor nutritional status recently. Will monitor Pulmonary nodule - incidental finding, based on size we have advised him of a need for 6 month f/u. History of Present Illness History of Present Illness Mr Ortiz is a 58-year-old male retired [employer] w/ PMHx of remote anal fissure surgery, otherwise healthy who presents with lower abdominal discomfort for the past 2 weeks that has been progressive. He has been taking stool softeners and psyllium per his PCP as he also had some constipation early on, but has been having bowel movements, however, he experiences pain and tenesmus. As he did not improve he was referred in by his primary doctor to go to the ED at [facility]. His pain was rated 8/10 and suprapubic and LLQ. Upon CT scan he was found with large abscess identified in the right lower quadrant abdomen abutting the redundant sigmoid colon and cecum. He was called for admission to [facility] as general surgery is not available at [facility]. WBC 13K with left shift, glucose 108, otherwise no abnormalities on labs, he is tachycardic, meets sepsis criteria. He has never had a screening colonoscopy. 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 Lives with his family. He drinks 3-4 beers per night, but has not had a drink since 2 weeks ago. 04/23: Overnight lost IV access, had significant pain, likely did not receive a full dose of dilaudid, after reinsertion of IV his pain is better with meds. He did have a small BM this morning. S/p IR drain today. Overnight had low grade temp and had diet advanced. Vomited up eggs for breakfast. Pain is better controlled. No CP or SOB Plan: Liquid diet Consider repeat CT scan in AM Cont IV antibiotics Vitals Vitals Vital Signs Date Time Temp Pulse Resp B/P (MAP) Pulse Ox O2 Delivery O2 Flow Rate FiO2 04/24/19 11:00 97.5 85 18 131/86 (101) 96 Room Air 97.5 Physical Exam General: Alert, Oriented X3, No acute distress Heart: Regular rate, Other Lungs: Clear Abdomen: Soft, Other (BUTCH with some purulent drainage) Extremities: No clubbing, No cyanosis, No edema, Normal pulses, No tenderness/swelling Skin: No rashes, No breakdown, No significant lesion Labs LABS Laboratory Tests Test 04/24/19 11:25 White Blood Count 12.9 x10^3/uL (4.0-11.0) Red Blood Count 4.14 x10^6/uL (4.30-5.70) Hemoglobin 13.4 g/dL (13.0-17.5) Hematocrit 39.0 % (39.0-53.0) Mean Corpuscular Volume 94 fL (79-100) Mean Corpuscular Hemoglobin 32 pg (25-35) Mean Corpuscular Hemoglobin Concent 34 g/dL (31-37) Red Cell Distribution Width 12.7 % (11.5-14.5) Platelet Count 284 x10^3/uL (140-400) Neutrophils (%) (Auto) 85 % (31-73) Lymphocytes (%) (Auto) 7 % (24-48) Monocytes (%) (Auto) 8 % (0-9) Eosinophils (%) (Auto) 1 % (0-3) Basophils (%) (Auto) 0 % (0-3) Neutrophils # (Auto) 10.9 x10^3/uL (1.8-7.7) Lymphocytes # (Auto) 0.9 x10^3/uL (1.0-4.8) Monocytes # (Auto) 1.0 x10^3/uL (0.0-1.1) Eosinophils # (Auto) 0.1 x10^3/uL (0.0-0.7) Basophils # (Auto) 0.0 x10^3/uL (0.0-0.2) Sodium Level 141 mmol/L (136-145) Potassium Level 3.7 mmol/L (3.5-5.1) Chloride Level 106 mmol/L (98-107) Carbon Dioxide Level 28 mmol/L (21-32) Anion Gap 7 (6-14) Blood Urea Nitrogen 7 mg/dL (8-26) Creatinine 0.7 mg/dL (0.7-1.3) Estimated GFR (Cockcroft-Gault) 115.0 Glucose Level 106 mg/dL (70-99) Calcium Level 8.3 mg/dL (8.5-10.1) Comment Review of Relevant I have reviewed the following items jessica (where applicable) has been applied. Labs Laboratory Tests Test 04/23/19 04:40 04/23/19 04:45 04/24/19 11:25 White Blood Count 14.8 x10^3/uL (4.0-11.0) 12.9 x10^3/uL (4.0-11.0) Red Blood Count 4.36 x10^6/uL (4.30-5.70) 4.14 x10^6/uL (4.30-5.70) Hemoglobin 14.1 g/dL (13.0-17.5) 13.4 g/dL (13.0-17.5) Hematocrit 41.3 % (39.0-53.0) 39.0 % (39.0-53.0) Mean Corpuscular Volume 95 fL (79-100) 94 fL (79-100) Mean Corpuscular Hemoglobin 32 pg (25-35) 32 pg (25-35) Mean Corpuscular Hemoglobin Concent 34 g/dL (31-37) 34 g/dL (31-37) Red Cell Distribution Width 12.6 % (11.5-14.5) 12.7 % (11.5-14.5) Platelet Count 287 x10^3/uL (140-400) 284 x10^3/uL (140-400) Neutrophils (%) (Auto) 88 % (31-73) 85 % (31-73) Lymphocytes (%) (Auto) 6 % (24-48) 7 % (24-48) Monocytes (%) (Auto) 6 % (0-9) 8 % (0-9) Eosinophils (%) (Auto) 0 % (0-3) 1 % (0-3) Basophils (%) (Auto) 0 % (0-3) 0 % (0-3) Neutrophils # (Auto) 13.1 x10^3/uL (1.8-7.7) 10.9 x10^3/uL (1.8-7.7) Lymphocytes # (Auto) 0.8 x10^3/uL (1.0-4.8) 0.9 x10^3/uL (1.0-4.8) Monocytes # (Auto) 0.8 x10^3/uL (0.0-1.1) 1.0 x10^3/uL (0.0-1.1) Eosinophils # (Auto) 0.0 x10^3/uL (0.0-0.7) 0.1 x10^3/uL (0.0-0.7) Basophils # (Auto) 0.0 x10^3/uL (0.0-0.2) 0.0 x10^3/uL (0.0-0.2) Segmented Neutrophils % 86 % (35-66) Band Neutrophils % 7 % (0-9) Lymphocytes % 1 % (24-48) Monocytes % 6 % (0-10) Platelet Estimate Adequate (ADEQUATE) Sodium Level 138 mmol/L (136-145) 141 mmol/L (136-145) Potassium Level 3.4 mmol/L (3.5-5.1) 3.7 mmol/L (3.5-5.1) Chloride Level 102 mmol/L (98-107) 106 mmol/L (98-107) Carbon Dioxide Level 28 mmol/L (21-32) 28 mmol/L (21-32) Anion Gap 8 (6-14) 7 (6-14) Blood Urea Nitrogen 9 mg/dL (8-26) 7 mg/dL (8-26) Creatinine 0.9 mg/dL (0.7-1.3) 0.7 mg/dL (0.7-1.3) Estimated GFR (Cockcroft-Gault) 86.1 115.0 Glucose Level 101 mg/dL (70-99) 106 mg/dL (70-99) Calcium Level 8.7 mg/dL (8.5-10.1) 8.3 mg/dL (8.5-10.1) Laboratory Tests Test 04/24/19 11:25 White Blood Count 12.9 x10^3/uL (4.0-11.0) Red Blood Count 4.14 x10^6/uL (4.30-5.70) Hemoglobin 13.4 g/dL (13.0-17.5) Hematocrit 39.0 % (39.0-53.0) Mean Corpuscular Volume 94 fL (79-100) Mean Corpuscular Hemoglobin 32 pg (25-35) Mean Corpuscular Hemoglobin Concent 34 g/dL (31-37) Red Cell Distribution Width 12.7 % (11.5-14.5) Platelet Count 284 x10^3/uL (140-400) Neutrophils (%) (Auto) 85 % (31-73) Lymphocytes (%) (Auto) 7 % (24-48) Monocytes (%) (Auto) 8 % (0-9) Eosinophils (%) (Auto) 1 % (0-3) Basophils (%) (Auto) 0 % (0-3) Neutrophils # (Auto) 10.9 x10^3/uL (1.8-7.7) Lymphocytes # (Auto) 0.9 x10^3/uL (1.0-4.8) Monocytes # (Auto) 1.0 x10^3/uL (0.0-1.1) Eosinophils # (Auto) 0.1 x10^3/uL (0.0-0.7) Basophils # (Auto) 0.0 x10^3/uL (0.0-0.2) Sodium Level 141 mmol/L (136-145) Potassium Level 3.7 mmol/L (3.5-5.1) Chloride Level 106 mmol/L (98-107) Carbon Dioxide Level 28 mmol/L (21-32) Anion Gap 7 (6-14) Blood Urea Nitrogen 7 mg/dL (8-26) Creatinine 0.7 mg/dL (0.7-1.3) Estimated GFR (Cockcroft-Gault) 115.0 Glucose Level 106 mg/dL (70-99) Calcium Level 8.3 mg/dL (8.5-10.1) Microbiology 04/22/19 Anaerobic/Aerobic Culture, Resulted Pending 04/22/19 Anaerobic Culture Result 1 (PELON), Resulted Pending 04/22/19 Aerobic Culture, Resulted Pending 04/22/19 Aerobic Culture Result 1 (PELON), Resulted Pending 04/22/19 Gram Stain - Final, Resulted 04/22/19 Gram Stain Result 1 (PELON) - Final, Resulted 04/22/19 Gram Stain Result 2 (PELON) - Final, Resulted Medications Current Medications Sodium Chloride 1,000 ml @ 100 mls/hr Q10H IV Last administered on 04/24/19 08:28; Start 04/21/19 at 16:00 Ondansetron HCl (Zofran) 4 mg PRN Q4HRS PRN IV NAUSEA/VOMITING Last administered on 04/24/19 08:27; Start 04/21/19 at 15:15 Piperacillin Sod/ Tazobactam Sod 3.375 gm/Sodium Chloride 50 ml @ 100 mls/hr Q8HRS IV Last administered on 04/24/19 05:36; Start 04/21/19 at 16:00 Metronidazole 100 ml @ 100 mls/hr Q8HRS IV Last administered on 04/24/19 06:13; Start 04/21/19 at 16:00 Morphine Sulfate (Morphine Sulfate) 4 mg PRN Q3HRS PRN IV PAIN; Start 04/21/19 at 15:30; Stop 04/21/19 at 15:53; Status DC Hydromorphone HCl (Dilaudid) 0.4 mg PRN Q4HRS PRN IVP PAIN Last administered on 04/21/19 20:20; Start 04/21/19 at 16:00; Stop 04/21/19 at 22:41; Status DC Hydromorphone HCl (Dilaudid) 0.4 mg PRN Q3HRS PRN IVP PAIN Last administered on 04/23/19 14:23; Start 04/21/19 at 22:45 Oxycodone/ Acetaminophen (Percocet 5/325) 1 tab PRN Q6HRS PRN PO MODERATE TO SEVERE PAIN Last administered on 04/23/19 06:16; Start 04/21/19 at 22:45 Heparin Sodium (Porcine) (Heparin Sodium) 5,000 unit Q12HR SQ Last administered on 04/23/19 08:56; Start 04/21/19 at 22:45; Stop 04/23/19 at 12:08; Status DC Hydromorphone HCl (Dilaudid) 0.4 mg 1X ONCE IVP Last administered on 04/21/19at 22:57; Start 04/21/19 at 23:00; Stop 04/21/19 at 23:01; Status DC Midazolam HCl (Versed) 2 mg STK-MED ONCE .ROUTE ; Start 04/22/19 at 13:24; Stop 04/22/19 at 13:24; Status DC Fentanyl Citrate (Fentanyl 2ml Vial) 100 mcg STK-MED ONCE .ROUTE ; Start 04/22/19 at 13:24; Stop 04/22/19 at 13:24; Status DC Lidocaine HCl (Buffered Lidocaine 1%) 3 ml STK-MED ONCE .ROUTE ; Start 04/22/19 at 13:27; Stop 04/22/19 at 13:28; Status DC Lidocaine HCl (Buffered Lidocaine 1%) 3 ml 1X ONCE IJ Last administered on 04/22/19at 13:45; Start 04/22/19 at 13:45; Stop 04/22/19 at 13:46; Status DC Midazolam HCl (Versed) 2 mg 1X ONCE IV Last administered on 04/22/19at 14:03; Start 04/22/19 at 13:45; Stop 04/22/19 at 13:46; Status DC Fentanyl Citrate (Fentanyl 2ml Vial) 100 mcg 1X ONCE IV Last administered on 04/22/19at 14:03; Start 04/22/19 at 13:45; Stop 04/22/19 at 13:46; Status DC Acetaminophen (Tylenol) 650 mg PRN Q6HRS PRN PO MILD PAIN/TEMP; Start 04/23/19 at 00:00 Potassium Chloride (Klor-Con) 40 meq 1X ONCE PO Last administered on 04/23/19 14:21; Start 04/23/19 at 12:15; Stop 04/23/19 at 12:16; Status DC Enoxaparin Sodium (Lovenox Per Pharmacy Prophylaxis Dosing) 1 each PRN DAILY PRN MC SEE COMMENTS; Start 04/23/19 at 12:15 Enoxaparin Sodium (Lovenox 40mg Syringe) 40 mg Q24H SQ Last administered on at 14:21; Start 04/23/19 at 13:00 Lactobacillus Rhamnosus (Culturelle) 1 cap BID PO Last administered on 04/24/19at 08:25; Start 04/23/19 at 21:00 Docusate Sodium (Colace) 100 mg PRN DAILY PRN PO CONSTIPATION (1st Choice); Start 04/23/19 at 14:15 Docusate Sodium (Colace) 100 mg DAILY PO Last administered on 04/24/19at 08:25; Start 04/23/19 at 14:00 Polyethylene Glycol (miraLAX PACKET) 17 gm PRN DAILY PRN PO CONSTIPATION (2nd Choice); Start 04/23/19 at 14:15 Active Scripts Active Reported No Known Medications Prior To Admisstion (Info) Each 1 Each 1X Vitals/I & O Vital Sign - Last 24 Hours 04/23/19 04/23/19 04/23/19 04/23/19 14:23 14:53 15:00 19:00 Temp 98.9 98.3 98.9 98.3 Pulse 94 96 Resp 22 20 16 18 B/P (MAP) 126/83 (97) 134/81 (98) Pulse Ox 93 93 93 93 O2 Delivery Room Air Room Air Room Air Room Air 04/23/19 04/23/19 04/24/19 04/24/19 20:00 23:00 03:00 07:00 Temp 100.4 99.4 97.5 100.4 99.4 97.5 Pulse 98 93 82 Resp 18 18 18 B/P (MAP) 129/73 (91) 138/81 (100) 146/87 (106) Pulse Ox 94 92 95 O2 Delivery Room Air Room Air Room Air Room Air 04/24/19 04/24/19 08:00 11:00 Temp 97.5 97.5 Pulse 85 Resp 18 B/P (MAP) 131/86 (101) Pulse Ox 96 O2 Delivery Room Air Room Air Intake and Output 04/23/19 04/23/19 04/24/19 15:00 23:00 07:00 Intake Total 330 ml 700 ml Output Total 50 ml 700 ml Balance 330 ml 650 ml -700 ml NOEL JACKSON MD Apr 24, 2019 13:48
[2019-04-24] MEDS: ENOXAPARIN 40 MG/0.4 ML SYRINGE. SQ SCH (14:12)
[2019-04-24 14:49] VITALS: BP 135/84
[2019-04-24 19:00] VITALS: BP 138/88
[2019-04-24 23:00] VITALS: BP 135/84
[2019-04-25] MEDS: ONDANSETRON PF 4 MG/2 ML VIAL. IV PRN (00:42)
[2019-04-25] MEDS: IV NORMAL SALINE 1000ML BAG 1,000 ML IV SCH ×3 (00:42→21:42)
[2019-04-25 03:00] VITALS: BP 143/86
[2019-04-25] MEDS: PIPERACILLIN/TAZOBACTAM 3.375 GM in IV NORMAL SALINE 50ML 50 ML IV SCH ×3 (05:46→21:39)
[2019-04-25 07:00] VITALS: BP 130/83
[2019-04-25] MEDS: LACTOBACILLUS RHAMNOSUS GG 1 CAPSULE. PO SCH ×2 (08:43→21:38)
[2019-04-25] MEDS: DOCUSATE SODIUM 100 MG CAPSULE. PO SCH (08:43)
--- NOTE | 2019-04-25 08:47 | NUR ---
Flushed BUTCH with 10cc of NS.
--- NOTE | 2019-04-25 09:04 | PDOC ---
TODD VALERIO TECHNICAL ASSISTANCE CONSULTANT 04/25/19 0904: SURGICAL PROGRESS NOTE Subjective still some pain nausea at times + flatus and stool Vital Signs Vital Signs Date Time Temp Pulse Resp B/P (MAP) Pulse Ox O2 Delivery O2 Flow Rate FiO2 04/25/19 07:52 Room Air 04/25/19 07:00 98.1 72 18 130/83 (99) 93 98.1 General: Alert, Oriented X3, Cooperative, No acute distress Abdomen: Soft, Other (drain purulent ) Labs Laboratory Tests Test 04/24/19 11:25 White Blood Count 12.9 x10^3/uL (4.0-11.0) Red Blood Count 4.14 x10^6/uL (4.30-5.70) Hemoglobin 13.4 g/dL (13.0-17.5) Hematocrit 39.0 % (39.0-53.0) Mean Corpuscular Volume 94 fL (79-100) Mean Corpuscular Hemoglobin 32 pg (25-35) Mean Corpuscular Hemoglobin Concent 34 g/dL (31-37) Red Cell Distribution Width 12.7 % (11.5-14.5) Platelet Count 284 x10^3/uL (140-400) Neutrophils (%) (Auto) 85 % (31-73) Lymphocytes (%) (Auto) 7 % (24-48) Monocytes (%) (Auto) 8 % (0-9) Eosinophils (%) (Auto) 1 % (0-3) Basophils (%) (Auto) 0 % (0-3) Neutrophils # (Auto) 10.9 x10^3/uL (1.8-7.7) Lymphocytes # (Auto) 0.9 x10^3/uL (1.0-4.8) Monocytes # (Auto) 1.0 x10^3/uL (0.0-1.1) Eosinophils # (Auto) 0.1 x10^3/uL (0.0-0.7) Basophils # (Auto) 0.0 x10^3/uL (0.0-0.2) Sodium Level 141 mmol/L (136-145) Potassium Level 3.7 mmol/L (3.5-5.1) Chloride Level 106 mmol/L (98-107) Carbon Dioxide Level 28 mmol/L (21-32) Anion Gap 7 (6-14) Blood Urea Nitrogen 7 mg/dL (8-26) Creatinine 0.7 mg/dL (0.7-1.3) Estimated GFR (Cockcroft-Gault) 115.0 Glucose Level 106 mg/dL (70-99) Calcium Level 8.3 mg/dL (8.5-10.1) Laboratory Tests Test 04/24/19 11:25 White Blood Count 12.9 x10^3/uL (4.0-11.0) Red Blood Count 4.14 x10^6/uL (4.30-5.70) Hemoglobin 13.4 g/dL (13.0-17.5) Hematocrit 39.0 % (39.0-53.0) Mean Corpuscular Volume 94 fL (79-100) Mean Corpuscular Hemoglobin 32 pg (25-35) Mean Corpuscular Hemoglobin Concent 34 g/dL (31-37) Red Cell Distribution Width 12.7 % (11.5-14.5) Platelet Count 284 x10^3/uL (140-400) Neutrophils (%) (Auto) 85 % (31-73) Lymphocytes (%) (Auto) 7 % (24-48) Monocytes (%) (Auto) 8 % (0-9) Eosinophils (%) (Auto) 1 % (0-3) Basophils (%) (Auto) 0 % (0-3) Neutrophils # (Auto) 10.9 x10^3/uL (1.8-7.7) Lymphocytes # (Auto) 0.9 x10^3/uL (1.0-4.8) Monocytes # (Auto) 1.0 x10^3/uL (0.0-1.1) Eosinophils # (Auto) 0.1 x10^3/uL (0.0-0.7) Basophils # (Auto) 0.0 x10^3/uL (0.0-0.2) Sodium Level 141 mmol/L (136-145) Potassium Level 3.7 mmol/L (3.5-5.1) Chloride Level 106 mmol/L (98-107) Carbon Dioxide Level 28 mmol/L (21-32) Anion Gap 7 (6-14) Blood Urea Nitrogen 7 mg/dL (8-26) Creatinine 0.7 mg/dL (0.7-1.3) Estimated GFR (Cockcroft-Gault) 115.0 Glucose Level 106 mg/dL (70-99) Calcium Level 8.3 mg/dL (8.5-10.1) Assessment/Plan pelvic abscess, continue drain, abx HILDA WALKER MD 04/25/19 0940: SURGICAL PROGRESS NOTE Assessment/Plan pt seen and examined plan repeat CT tomorrow ambulate TODD VALERIO APRN Apr 25, 2019 09:04 HILDA WALKER MD Apr 25, 2019 09:40
--- NOTE | 2019-04-25 10:08 | PDOC ---
Subjective: Subjective: Tolerating clears - has questions about Ensure - didn't do well w/ pudding yesterday. Passing a little gas and stool. RLQ pain improved. Objective: Objective: Reviewed chart - ID asked to see, plans for CT tomorrow. Vital Signs: Vital Signs Date Time Temp Pulse Resp B/P (MAP) Pulse Ox O2 Delivery O2 Flow Rate FiO2 04/25/19 07:52 Room Air 04/25/19 07:00 98.1 72 18 130/83 (99) 93 98.1 Labs: Laboratory Tests Test 04/24/19 11:25 White Blood Count 12.9 x10^3/uL Red Blood Count 4.14 x10^6/uL Hemoglobin 13.4 g/dL Hematocrit 39.0 % Mean Corpuscular Volume 94 fL Mean Corpuscular Hemoglobin 32 pg Mean Corpuscular Hemoglobin Concent 34 g/dL Red Cell Distribution Width 12.7 % Platelet Count 284 x10^3/uL Neutrophils (%) (Auto) 85 % Lymphocytes (%) (Auto) 7 % Monocytes (%) (Auto) 8 % Eosinophils (%) (Auto) 1 % Basophils (%) (Auto) 0 % Neutrophils # (Auto) 10.9 x10^3/uL Lymphocytes # (Auto) 0.9 x10^3/uL Monocytes # (Auto) 1.0 x10^3/uL Eosinophils # (Auto) 0.1 x10^3/uL Basophils # (Auto) 0.0 x10^3/uL Sodium Level 141 mmol/L Potassium Level 3.7 mmol/L Chloride Level 106 mmol/L Carbon Dioxide Level 28 mmol/L Anion Gap 7 Blood Urea Nitrogen 7 mg/dL Creatinine 0.7 mg/dL Estimated GFR (Cockcroft-Gault) 115.0 Glucose Level 106 mg/dL Calcium Level 8.3 mg/dL ORDERED: ANAER/AEROB/GS COMMENTS: RLQ ABD ABSCESS Procedure Result ANAEROBIC-AEROBIC CULTURE PENDING ANAEROBIC RES 1 PENDING AEROBIC CULT Preliminary Preliminary report AEROBIC RES 1 Preliminary Escherichia coli 4+ GRAM STAIN Final Final report GRAM STAIN RES 1 Final No organisms seen GRAM STAIN RES 2 Final Comment Many white blood cells. PE: GEN: NAD LUNGS: CTAB HEART: RRR ABD: MAXIMO, S/ND/NT NEURO/PSYCH: A & O 3 A/P: RLQ abscess -- Plans as above, Ensure seems like a good idea while on liquids. DEBBIE BRUNER Apr 25, 2019 10:08
[2019-04-25 11:00] VITALS: BP 132/89
--- NOTE | 2019-04-25 11:18 | PDOC ---
PROGRESS NOTES Chief Complaint Chief Complaint A/P: Intra-abdominal abscess - r/o perf appy, diverticultis etc s/p indwelling BUTCH DRain (iR) Sepsis - 2/2 abdominal abscess with leukocytosis and tachycardia, cont IVF and antibiotics Pulmonary nodule - incidental finding, based on size we have advised him of a need for 6 month f/u. History of Present Illness History of Present Illness MInor RLQ and infrra umbilical discomfort Vomited over the weekend after taking solids so now back to liq diet LOw grade temp thursday WBC 12 or 14 NOn toxic appearing SLated for rpt interval CT tmr by GS HAd zosyn by hospitalist since admission some BUTCH drainage (RLQ placed by IR) HE has very good ambulation PLAn: Interval CT tmr Keep liq diet for now and other supportive meds I did consult ID bec of low grade temps and leukocytsois but this could all be just maybe from perf appy? (called in already) - will see what CT shows COnt zosyn for now dw and pt Vitals Vitals Vital Signs Date Time Temp Pulse Resp B/P (MAP) Pulse Ox O2 Delivery O2 Flow Rate FiO2 04/25/19 11:00 97.9 71 18 132/89 (103) 96 Room Air 97.9 Physical Exam General: Alert, Oriented X3, Cooperative, No acute distress Heart: Regular rate, Other Lungs: Clear Abdomen: Soft, Other (drain purulent ) Extremities: No clubbing, No cyanosis, No edema, Normal pulses, No tenderness/swelling Skin: No rashes, No breakdown, No significant lesion Labs LABS Laboratory Tests Test 04/24/19 11:25 White Blood Count 12.9 x10^3/uL (4.0-11.0) Red Blood Count 4.14 x10^6/uL (4.30-5.70) Hemoglobin 13.4 g/dL (13.0-17.5) Hematocrit 39.0 % (39.0-53.0) Mean Corpuscular Volume 94 fL (79-100) Mean Corpuscular Hemoglobin 32 pg (25-35) Mean Corpuscular Hemoglobin Concent 34 g/dL (31-37) Red Cell Distribution Width 12.7 % (11.5-14.5) Platelet Count 284 x10^3/uL (140-400) Neutrophils (%) (Auto) 85 % (31-73) Lymphocytes (%) (Auto) 7 % (24-48) Monocytes (%) (Auto) 8 % (0-9) Eosinophils (%) (Auto) 1 % (0-3) Basophils (%) (Auto) 0 % (0-3) Neutrophils # (Auto) 10.9 x10^3/uL (1.8-7.7) Lymphocytes # (Auto) 0.9 x10^3/uL (1.0-4.8) Monocytes # (Auto) 1.0 x10^3/uL (0.0-1.1) Eosinophils # (Auto) 0.1 x10^3/uL (0.0-0.7) Basophils # (Auto) 0.0 x10^3/uL (0.0-0.2) Sodium Level 141 mmol/L (136-145) Potassium Level 3.7 mmol/L (3.5-5.1) Chloride Level 106 mmol/L (98-107) Carbon Dioxide Level 28 mmol/L (21-32) Anion Gap 7 (6-14) Blood Urea Nitrogen 7 mg/dL (8-26) Creatinine 0.7 mg/dL (0.7-1.3) Estimated GFR (Cockcroft-Gault) 115.0 Glucose Level 106 mg/dL (70-99) Calcium Level 8.3 mg/dL (8.5-10.1) Review of Systems Review of Systems Infra umbilical discomfort - otherwise neg 14 pt Comment Review of Relevant I have reviewed the following items jessica (where applicable) has been applied. Labs Laboratory Tests Test 04/24/19 11:25 White Blood Count 12.9 x10^3/uL (4.0-11.0) Red Blood Count 4.14 x10^6/uL (4.30-5.70) Hemoglobin 13.4 g/dL (13.0-17.5) Hematocrit 39.0 % (39.0-53.0) Mean Corpuscular Volume 94 fL (79-100) Mean Corpuscular Hemoglobin 32 pg (25-35) Mean Corpuscular Hemoglobin Concent 34 g/dL (31-37) Red Cell Distribution Width 12.7 % (11.5-14.5) Platelet Count 284 x10^3/uL (140-400) Neutrophils (%) (Auto) 85 % (31-73) Lymphocytes (%) (Auto) 7 % (24-48) Monocytes (%) (Auto) 8 % (0-9) Eosinophils (%) (Auto) 1 % (0-3) Basophils (%) (Auto) 0 % (0-3) Neutrophils # (Auto) 10.9 x10^3/uL (1.8-7.7) Lymphocytes # (Auto) 0.9 x10^3/uL (1.0-4.8) Monocytes # (Auto) 1.0 x10^3/uL (0.0-1.1) Eosinophils # (Auto) 0.1 x10^3/uL (0.0-0.7) Basophils # (Auto) 0.0 x10^3/uL (0.0-0.2) Sodium Level 141 mmol/L (136-145) Potassium Level 3.7 mmol/L (3.5-5.1) Chloride Level 106 mmol/L (98-107) Carbon Dioxide Level 28 mmol/L (21-32) Anion Gap 7 (6-14) Blood Urea Nitrogen 7 mg/dL (8-26) Creatinine 0.7 mg/dL (0.7-1.3) Estimated GFR (Cockcroft-Gault) 115.0 Glucose Level 106 mg/dL (70-99) Calcium Level 8.3 mg/dL (8.5-10.1) Laboratory Tests Test 04/24/19 11:25 White Blood Count 12.9 x10^3/uL (4.0-11.0) Red Blood Count 4.14 x10^6/uL (4.30-5.70) Hemoglobin 13.4 g/dL (13.0-17.5) Hematocrit 39.0 % (39.0-53.0) Mean Corpuscular Volume 94 fL (79-100) Mean Corpuscular Hemoglobin 32 pg (25-35) Mean Corpuscular Hemoglobin Concent 34 g/dL (31-37) Red Cell Distribution Width 12.7 % (11.5-14.5) Platelet Count 284 x10^3/uL (140-400) Neutrophils (%) (Auto) 85 % (31-73) Lymphocytes (%) (Auto) 7 % (24-48) Monocytes (%) (Auto) 8 % (0-9) Eosinophils (%) (Auto) 1 % (0-3) Basophils (%) (Auto) 0 % (0-3) Neutrophils # (Auto) 10.9 x10^3/uL (1.8-7.7) Lymphocytes # (Auto) 0.9 x10^3/uL (1.0-4.8) Monocytes # (Auto) 1.0 x10^3/uL (0.0-1.1) Eosinophils # (Auto) 0.1 x10^3/uL (0.0-0.7) Basophils # (Auto) 0.0 x10^3/uL (0.0-0.2) Sodium Level 141 mmol/L (136-145) Potassium Level 3.7 mmol/L (3.5-5.1) Chloride Level 106 mmol/L (98-107) Carbon Dioxide Level 28 mmol/L (21-32) Anion Gap 7 (6-14) Blood Urea Nitrogen 7 mg/dL (8-26) Creatinine 0.7 mg/dL (0.7-1.3) Estimated GFR (Cockcroft-Gault) 115.0 Glucose Level 106 mg/dL (70-99) Calcium Level 8.3 mg/dL (8.5-10.1) Microbiology 04/22/19 Anaerobic/Aerobic Culture, Resulted Pending 04/22/19 Anaerobic Culture Result 1 (PELON), Resulted Pending 04/22/19 Aerobic Culture - Preliminary, Resulted 04/22/19 Aerobic Culture Result 1 (PELON) - Preliminary, Resulted 04/22/19 Gram Stain - Final, Resulted 04/22/19 Gram Stain Result 1 (PELON) - Final, Resulted 04/22/19 Gram Stain Result 2 (PELON) - Final, Resulted Medications Current Medications Sodium Chloride 1,000 ml @ 100 mls/hr Q10H IV Last administered on 04/25/19at 08:44; Start 04/21/19 at 16:00 Ondansetron HCl (Zofran) 4 mg PRN Q4HRS PRN IV NAUSEA/VOMITING Last administered on 04/25/19at 00:42; Start 04/21/19 at 15:15 Piperacillin Sod/ Tazobactam Sod 3.375 gm/Sodium Chloride 50 ml @ 100 mls/hr Q8HRS IV Last administered on 04/25/19 05:46; Start 04/21/19 at 16:00 Metronidazole 100 ml @ 100 mls/hr Q8HRS IV Last administered on 04/25/19 06:31; Start 04/21/19 at 16:00 Morphine Sulfate (Morphine Sulfate) 4 mg PRN Q3HRS PRN IV PAIN; Start 04/21/19 at 15:30; Stop 04/21/19 at 15:53; Status DC Hydromorphone HCl (Dilaudid) 0.4 mg PRN Q4HRS PRN IVP PAIN Last administered on 04/21/19 20:20; Start 04/21/19 at 16:00; Stop 04/21/19 at 22:41; Status DC Hydromorphone HCl (Dilaudid) 0.4 mg PRN Q3HRS PRN IVP PAIN Last administered on 04/23/19 14:23; Start 04/21/19 at 22:45 Oxycodone/ Acetaminophen (Percocet 5/325) 1 tab PRN Q6HRS PRN PO MODERATE TO SEVERE PAIN Last administered on 04/23/19 06:16; Start 04/21/19 at 22:45 Heparin Sodium (Porcine) (Heparin Sodium) 5,000 unit Q12HR SQ Last administered on 04/23/19 08:56; Start 04/21/19 at 22:45; Stop 04/23/19 at 12:08; Status DC Hydromorphone HCl (Dilaudid) 0.4 mg 1X ONCE IVP Last administered on 04/21/19 22:57; Start 04/21/19 at 23:00; Stop 04/21/19 at 23:01; Status DC Midazolam HCl (Versed) 2 mg STK-MED ONCE .ROUTE ; Start 04/22/19 at 13:24; Stop 04/22/19 at 13:24; Status DC Fentanyl Citrate (Fentanyl 2ml Vial) 100 mcg STK-MED ONCE .ROUTE ; Start 04/22/19 at 13:24; Stop 04/22/19 at 13:24; Status DC Lidocaine HCl (Buffered Lidocaine 1%) 3 ml STK-MED ONCE .ROUTE ; Start 04/22/19 at 13:27; Stop 04/22/19 at 13:28; Status DC Lidocaine HCl (Buffered Lidocaine 1%) 3 ml 1X ONCE IJ Last administered on 04/22/19 13:45; Start 04/22/19 at 13:45; Stop 04/22/19 at 13:46; Status DC Midazolam HCl (Versed) 2 mg 1X ONCE IV Last administered on 04/22/19at 14:03; Start 04/22/19 at 13:45; Stop 04/22/19 at 13:46; Status DC Fentanyl Citrate (Fentanyl 2ml Vial) 100 mcg 1X ONCE IV Last administered on 04/22/19 14:03; Start 04/22/19 at 13:45; Stop 04/22/19 at 13:46; Status DC Acetaminophen (Tylenol) 650 mg PRN Q6HRS PRN PO MILD PAIN/TEMP; Start 04/23/19 at 00:00 Potassium Chloride (Klor-Con) 40 meq 1X ONCE PO Last administered on 04/23/19at 14:21; Start 04/23/19 at 12:15; Stop 04/23/19 at 12:16; Status DC Enoxaparin Sodium (Lovenox Per Pharmacy Prophylaxis Dosing) 1 each PRN DAILY PRN MC SEE COMMENTS; Start 04/23/19 at 12:15 Enoxaparin Sodium (Lovenox 40mg Syringe) 40 mg Q24H SQ Last administered on 04/24/19at 14:12; Start 04/23/19 at 13:00 Lactobacillus Rhamnosus (Culturelle) 1 cap BID PO Last administered on 04/25/19at 08:43; Start 04/23/19 at 21:00 Docusate Sodium (Colace) 100 mg PRN DAILY PRN PO CONSTIPATION (1st Choice); Start 04/23/19 at 14:15 Docusate Sodium (Colace) 100 mg DAILY PO Last administered on 04/25/19at 08:43; Start 04/23/19 at 14:00 Polyethylene Glycol (miraLAX PACKET) 17 gm PRN DAILY PRN PO CONSTIPATION (2nd Choice); Start 04/23/19 at 14:15 Active Scripts Active Reported No Known Medications Prior To Admisstion (Info) Each 1 Each MC 1X Vitals/I & O Vital Sign - Last 24 Hours 04/24/19 04/24/19 04/24/19 04/24/19 14:49 19:00 20:00 23:00 Temp 97.5 98.4 98.9 97.5 98.4 98.9 Pulse 85 80 80 Resp 18 18 18 B/P (MAP) 135/84 (101) 138/88 (105) 135/84 (101) Pulse Ox 96 94 94 O2 Delivery Room Air Room Air Room Air Room Air 04/25/19 04/25/19 04/25/19 04/25/19 03:00 07:00 07:52 11:00 Temp 97.9 98.1 97.9 97.9 98.1 97.9 Pulse 82 72 71 Resp 18 18 18 B/P (MAP) 143/86 (105) 130/83 (99) 132/89 (103) Pulse Ox 98 93 96 O2 Delivery Room Air Room Air Room Air Room Air KVEYN CHRISTY MD Apr 25, 2019 11:17
[2019-04-25] MEDS: ENOXAPARIN 40 MG/0.4 ML SYRINGE. SQ SCH (13:41)
[2019-04-25 15:00] VITALS: BP 125/83
[2019-04-25 19:00] VITALS: BP 135/83
[2019-04-25] MEDS: HYDROmorphone 2 MG/ML VIAL IVP PRN (21:38)
[2019-04-25 23:00] VITALS: BP 125/87
[2019-04-26 03:00] VITALS: BP 132/85
[2019-04-26] MEDS: PIPERACILLIN/TAZOBACTAM 3.375 GM in IV NORMAL SALINE 50ML 50 ML IV SCH ×3 (05:23→22:26)
[2019-04-26 07:00] VITALS: BP 136/89
[2019-04-26 07:15] LABS: BASO % 0 % (0-3); EOS # 0.2 x10^3/uL (0.0-0.7); EOS % 3 % (0-3); HEMATOCRIT 39.3 % (39.0-53.0); HEMOGLOBIN 13.6 g/dL (13.0-17.5); LYMPH # 1.1 x10^3/uL (1.0-4.8); LYMPH % 16 % (24-48); MEAN CORPUSCULAR HEMOGLOBIN 33 pg (25-35); MEAN CORPUSCULAR HGB CONC 35 g/dL (31-37); MEAN CORPUSCULAR VOLUME 95 fL (79-100); MONO # 0.6 x10^3/uL (0.0-1.1); MONO % 9 % (0-9); NEUT # 5.2 x10^3/uL (1.8-7.7); NEUT % 72 % (31-73); PLATELET COUNT 345 x10^3/uL (140-400); RED BLOOD COUNT 4.16 x10^6/uL (4.30-5.70); RED CELL DISTRIBUTION WIDTH 12.9 % (11.5-14.5); WHITE BLOOD COUNT 7.2 x10^3/uL (4.0-11.0)
[2019-04-26 07:18] LABS: CALCIUM 8.6 mg/dL (8.5-10.1); CREATININE 0.8 mg/dL (0.7-1.3); GFR 98.6; POTASSIUM 3.7 mmol/L (3.5-5.1)
[2019-04-26] MEDS ORDERED: CONTRAST GIVEN. MC PRN (08:30)
[2019-04-26] MEDS ORDERED: IOHEXOL 300 MG/ML 100ML VIAL. IV ONE (08:30)
--- NOTE | 2019-04-26 09:04 | PDOC ---
PROGRESS NOTES Chief Complaint Chief Complaint A/P: Intra-abdominal abscess - r/o perf appy, diverticultis etc s/p indwelling BUTCH DRain (iR) Sepsis - 2/2 abdominal abscess with leukocytosis and tachycardia, cont IVF and antibiotics Pulmonary nodule - incidental finding, based on size we have advised him of a need for 6 month f/u. History of Present Illness History of Present Illness RLQ pain continues, high pain tolerance no fevers minimal drainage rLQ via BUTCH CT abd done but read pending PLAn: Await CT abd Cont zosyn We are looking for possible perf appy GS on board Vitals Vitals Vital Signs Date Time Temp Pulse Resp B/P (MAP) Pulse Ox O2 Delivery O2 Flow Rate FiO2 04/26/19 07:00 97.6 70 18 136/89 (105) 95 Room Air 97.6 Physical Exam General: Alert, Oriented X3, Cooperative, No acute distress Heart: Regular rate, Other Lungs: Clear Abdomen: Soft, Other (drain purulent ) Extremities: No clubbing, No cyanosis, No edema, Normal pulses, No tenderness/swelling Skin: No rashes, No breakdown, No significant lesion Labs LABS Laboratory Tests Test 04/26/19 05:50 White Blood Count 7.2 x10^3/uL (4.0-11.0) Red Blood Count 4.16 x10^6/uL (4.30-5.70) Hemoglobin 13.6 g/dL (13.0-17.5) Hematocrit 39.3 % (39.0-53.0) Mean Corpuscular Volume 95 fL (79-100) Mean Corpuscular Hemoglobin 33 pg (25-35) Mean Corpuscular Hemoglobin Concent 35 g/dL (31-37) Red Cell Distribution Width 12.9 % (11.5-14.5) Platelet Count 345 x10^3/uL (140-400) Neutrophils (%) (Auto) 72 % (31-73) Lymphocytes (%) (Auto) 16 % (24-48) Monocytes (%) (Auto) 9 % (0-9) Eosinophils (%) (Auto) 3 % (0-3) Basophils (%) (Auto) 0 % (0-3) Neutrophils # (Auto) 5.2 x10^3/uL (1.8-7.7) Lymphocytes # (Auto) 1.1 x10^3/uL (1.0-4.8) Monocytes # (Auto) 0.6 x10^3/uL (0.0-1.1) Eosinophils # (Auto) 0.2 x10^3/uL (0.0-0.7) Basophils # (Auto) 0.0 x10^3/uL (0.0-0.2) Sodium Level 144 mmol/L (136-145) Potassium Level 3.7 mmol/L (3.5-5.1) Chloride Level 108 mmol/L (98-107) Carbon Dioxide Level 28 mmol/L (21-32) Anion Gap 8 (6-14) Blood Urea Nitrogen 6 mg/dL (8-26) Creatinine 0.8 mg/dL (0.7-1.3) Estimated GFR (Cockcroft-Gault) 98.6 Glucose Level 96 mg/dL (70-99) Calcium Level 8.6 mg/dL (8.5-10.1) Review of Systems Review of Systems RLQ pain,no fevers, no emesis, rest of 14 pt neg Comment Review of Relevant I have reviewed the following items jessica (where applicable) has been applied. Labs Laboratory Tests Test 04/24/19 11:25 04/26/19 05:50 White Blood Count 12.9 x10^3/uL (4.0-11.0) 7.2 x10^3/uL (4.0-11.0) Red Blood Count 4.14 x10^6/uL (4.30-5.70) 4.16 x10^6/uL (4.30-5.70) Hemoglobin 13.4 g/dL (13.0-17.5) 13.6 g/dL (13.0-17.5) Hematocrit 39.0 % (39.0-53.0) 39.3 % (39.0-53.0) Mean Corpuscular Volume 94 fL (79-100) 95 fL (79-100) Mean Corpuscular Hemoglobin 32 pg (25-35) 33 pg (25-35) Mean Corpuscular Hemoglobin Concent 34 g/dL (31-37) 35 g/dL (31-37) Red Cell Distribution Width 12.7 % (11.5-14.5) 12.9 % (11.5-14.5) Platelet Count 284 x10^3/uL (140-400) 345 x10^3/uL (140-400) Neutrophils (%) (Auto) 85 % (31-73) 72 % (31-73) Lymphocytes (%) (Auto) 7 % (24-48) 16 % (24-48) Monocytes (%) (Auto) 8 % (0-9) 9 % (0-9) Eosinophils (%) (Auto) 1 % (0-3) 3 % (0-3) Basophils (%) (Auto) 0 % (0-3) 0 % (0-3) Neutrophils # (Auto) 10.9 x10^3/uL (1.8-7.7) 5.2 x10^3/uL (1.8-7.7) Lymphocytes # (Auto) 0.9 x10^3/uL (1.0-4.8) 1.1 x10^3/uL (1.0-4.8) Monocytes # (Auto) 1.0 x10^3/uL (0.0-1.1) 0.6 x10^3/uL (0.0-1.1) Eosinophils # (Auto) 0.1 x10^3/uL (0.0-0.7) 0.2 x10^3/uL (0.0-0.7) Basophils # (Auto) 0.0 x10^3/uL (0.0-0.2) 0.0 x10^3/uL (0.0-0.2) Sodium Level 141 mmol/L (136-145) 144 mmol/L (136-145) Potassium Level 3.7 mmol/L (3.5-5.1) 3.7 mmol/L (3.5-5.1) Chloride Level 106 mmol/L (98-107) 108 mmol/L (98-107) Carbon Dioxide Level 28 mmol/L (21-32) 28 mmol/L (21-32) Anion Gap 7 (6-14) 8 (6-14) Blood Urea Nitrogen 7 mg/dL (8-26) 6 mg/dL (8-26) Creatinine 0.7 mg/dL (0.7-1.3) 0.8 mg/dL (0.7-1.3) Estimated GFR (Cockcroft-Gault) 115.0 98.6 Glucose Level 106 mg/dL (70-99) 96 mg/dL (70-99) Calcium Level 8.3 mg/dL (8.5-10.1) 8.6 mg/dL (8.5-10.1) Laboratory Tests Test 04/26/19 05:50 White Blood Count 7.2 x10^3/uL (4.0-11.0) Red Blood Count 4.16 x10^6/uL (4.30-5.70) Hemoglobin 13.6 g/dL (13.0-17.5) Hematocrit 39.3 % (39.0-53.0) Mean Corpuscular Volume 95 fL (79-100) Mean Corpuscular Hemoglobin 33 pg (25-35) Mean Corpuscular Hemoglobin Concent 35 g/dL (31-37) Red Cell Distribution Width 12.9 % (11.5-14.5) Platelet Count 345 x10^3/uL (140-400) Neutrophils (%) (Auto) 72 % (31-73) Lymphocytes (%) (Auto) 16 % (24-48) Monocytes (%) (Auto) 9 % (0-9) Eosinophils (%) (Auto) 3 % (0-3) Basophils (%) (Auto) 0 % (0-3) Neutrophils # (Auto) 5.2 x10^3/uL (1.8-7.7) Lymphocytes # (Auto) 1.1 x10^3/uL (1.0-4.8) Monocytes # (Auto) 0.6 x10^3/uL (0.0-1.1) Eosinophils # (Auto) 0.2 x10^3/uL (0.0-0.7) Basophils # (Auto) 0.0 x10^3/uL (0.0-0.2) Sodium Level 144 mmol/L (136-145) Potassium Level 3.7 mmol/L (3.5-5.1) Chloride Level 108 mmol/L (98-107) Carbon Dioxide Level 28 mmol/L (21-32) Anion Gap 8 (6-14) Blood Urea Nitrogen 6 mg/dL (8-26) Creatinine 0.8 mg/dL (0.7-1.3) Estimated GFR (Cockcroft-Gault) 98.6 Glucose Level 96 mg/dL (70-99) Calcium Level 8.6 mg/dL (8.5-10.1) Microbiology 04/22/19 Anaerobic/Aerobic Culture, Resulted Pending 04/22/19 Anaerobic Culture Result 1 (PELON), Resulted Pending 04/22/19 Aerobic Culture - Final, Resulted 04/22/19 Aerobic Culture Result 1 (PELON) - Final, Resulted 04/22/19 Aerobic Culture Result 2 (PELON) - Final, Resulted 04/22/19 Antimicrobic Susceptibility - Final, Resulted 04/22/19 Gram Stain - Final, Resulted 04/22/19 Gram Stain Result 1 (PELON) - Final, Resulted 04/22/19 Gram Stain Result 2 (PELON) - Final, Resulted Medications Current Medications Sodium Chloride 1,000 ml @ 80 mls/hr [id number] IV Last administered on 04/25/19at 21:42; Start 04/21/19 at 16:00 Ondansetron HCl (Zofran) 4 mg PRN Q4HRS PRN IV NAUSEA/VOMITING Last administered on 04/25/19at 00:42; Start 04/21/19 at 15:15 Piperacillin Sod/ Tazobactam Sod 3.375 gm/Sodium Chloride 50 ml @ 100 mls/hr Q8HRS IV Last administered on 04/26/19 05:23; Start 04/21/19 at 16:00 Metronidazole 100 ml @ 100 mls/hr Q8HRS IV Last administered on 04/26/19at 05:23; Start 04/21/19 at 16:00 Morphine Sulfate (Morphine Sulfate) 4 mg PRN Q3HRS PRN IV PAIN; Start 04/21/19 at 15:30; Stop 04/21/19 at 15:53; Status DC Hydromorphone HCl (Dilaudid) 0.4 mg PRN Q4HRS PRN IVP PAIN Last administered on 04/21/19at 20:20; Start 04/21/19 at 16:00; Stop 04/21/19 at 22:41; Status DC Hydromorphone HCl (Dilaudid) 0.4 mg PRN Q3HRS PRN IVP PAIN Last administered on 04/25/19at 21:38; Start 04/21/19 at 22:45 Oxycodone/ Acetaminophen (Percocet 5/325) 1 tab PRN Q6HRS PRN PO MODERATE TO SEVERE PAIN Last administered on 04/23/19at 06:16; Start 04/21/19 at 22:45 Heparin Sodium (Porcine) (Heparin Sodium) 5,000 unit Q12HR SQ Last administered on 04/23/19 08:56; Start 04/21/19 at 22:45; Stop 04/23/19 at 12:08; Status DC Hydromorphone HCl (Dilaudid) 0.4 mg 1X ONCE IVP Last administered on 04/21/19at 22:57; Start 04/21/19 at 23:00; Stop 04/21/19 at 23:01; Status DC Midazolam HCl (Versed) 2 mg STK-MED ONCE .ROUTE ; Start 04/22/19 at 13:24; Stop 04/22/19 at 13:24; Status DC Fentanyl Citrate (Fentanyl 2ml Vial) 100 mcg STK-MED ONCE .ROUTE ; Start 04/22/19 at 13:24; Stop 04/22/19 at 13:24; Status DC Lidocaine HCl (Buffered Lidocaine 1%) 3 ml STK-MED ONCE .ROUTE ; Start 04/22/19 at 13:27; Stop 04/22/19 at 13:28; Status DC Lidocaine HCl (Buffered Lidocaine 1%) 3 ml 1X ONCE IJ Last administered on 04/22/19at 13:45; Start 04/22/19 at 13:45; Stop 04/22/19 at 13:46; Status DC Midazolam HCl (Versed) 2 mg 1X ONCE IV Last administered on 04/22/19at 14:03; Start 04/22/19 at 13:45; Stop 04/22/19 at 13:46; Status DC Fentanyl Citrate (Fentanyl 2ml Vial) 100 mcg 1X ONCE IV Last administered on 04/22/19 14:03; Start 04/22/19 at 13:45; Stop 04/22/19 at 13:46; Status DC Acetaminophen (Tylenol) 650 mg PRN Q6HRS PRN PO MILD PAIN/TEMP; Start 04/23/19 at 00:00 Potassium Chloride (Klor-Con) 40 meq 1X ONCE PO Last administered on 04/23/19at 14:21; Start 04/23/19 at 12:15; Stop 04/23/19 at 12:16; Status DC Enoxaparin Sodium (Lovenox Per Pharmacy Prophylaxis Dosing) 1 each PRN DAILY PRN MC SEE COMMENTS; Start 04/23/19 at 12:15 Enoxaparin Sodium (Lovenox 40mg Syringe) 40 mg Q24H SQ Last administered on 04/25/19at 13:41; Start 04/23/19 at 13:00 Lactobacillus Rhamnosus (Culturelle) 1 cap BID PO Last administered on 04/25/19at 21:38; Start 04/23/19 at 21:00 Docusate Sodium (Colace) 100 mg PRN DAILY PRN PO CONSTIPATION (1st Choice); Start 04/23/19 at 14:15 Docusate Sodium (Colace) 100 mg DAILY PO Last administered on 04/25/19at 08:43; Start 04/23/19 at 14:00 Polyethylene Glycol (miraLAX PACKET) 17 gm PRN DAILY PRN PO CONSTIPATION (2nd Choice); Start 04/23/19 at 14:15 Iohexol (Omnipaque 300 Mg/ml) 75 ml 1X ONCE IV Last administered on 04/26/19at 08:35; Start 04/26/19 at 08:30; Stop 04/26/19 at 08:31; Status DC Info (CONTRAST GIVEN -- Rx MONITORING) 1 each PRN DAILY PRN MC SEE COMMENTS; Start 04/26/19 at 08:30; Stop 04/28/19 at 08:29 Active Scripts Active Reported No Known Medications Prior To Admisstion (Info) Each 1 Each MC 1X Vitals/I & O Vital Sign - Last 24 Hours 04/25/19 04/25/19 04/25/19 04/25/19 11:00 15:00 19:00 20:00 Temp 97.9 98.0 98.3 97.9 98.0 98.3 Pulse 71 70 71 Resp 18 18 18 B/P (MAP) 132/89 (103) 125/83 (97) 135/83 (100) Pulse Ox 96 95 94 O2 Delivery Room Air Room Air Room Air Room Air 04/25/19 04/25/19 04/25/19 04/26/19 21:38 22:08 23:00 03:00 Temp 98.6 97.5 98.6 97.5 Pulse 68 70 Resp 22 18 18 B/P (MAP) 125/87 (100) 132/85 (101) Pulse Ox 94 95 O2 Delivery Room Air Room Air Room Air 04/26/19 07:00 Temp 97.6 97.6 Pulse 70 Resp 18 B/P (MAP) 136/89 (105) Pulse Ox 95 O2 Delivery Room Air Intake and Output 04/25/19 04/25/19 04/26/19 15:00 23:00 07:00 Output Total 35 ml Balance -35 ml KEVYN CHRISTY MD Apr 26, 2019 09:04
--- NOTE | 2019-04-26 09:30 | PDOC ---
Subjective: Subjective: Feels the same, just back from CT, tolerating clears. Objective: Vital Signs: Vital Signs Date Time Temp Pulse Resp B/P (MAP) Pulse Ox O2 Delivery O2 Flow Rate FiO2 04/26/19 07:00 97.6 70 18 136/89 (105) 95 Room Air 97.6 Labs: Laboratory Tests Test 04/26/19 05:50 White Blood Count 7.2 x10^3/uL Red Blood Count 4.16 x10^6/uL Hemoglobin 13.6 g/dL Hematocrit 39.3 % Mean Corpuscular Volume 95 fL Mean Corpuscular Hemoglobin 33 pg Mean Corpuscular Hemoglobin Concent 35 g/dL Red Cell Distribution Width 12.9 % Platelet Count 345 x10^3/uL Neutrophils (%) (Auto) 72 % Lymphocytes (%) (Auto) 16 % Monocytes (%) (Auto) 9 % Eosinophils (%) (Auto) 3 % Basophils (%) (Auto) 0 % Neutrophils # (Auto) 5.2 x10^3/uL Lymphocytes # (Auto) 1.1 x10^3/uL Monocytes # (Auto) 0.6 x10^3/uL Eosinophils # (Auto) 0.2 x10^3/uL Basophils # (Auto) 0.0 x10^3/uL Sodium Level 144 mmol/L Potassium Level 3.7 mmol/L Chloride Level 108 mmol/L Carbon Dioxide Level 28 mmol/L Anion Gap 8 Blood Urea Nitrogen 6 mg/dL Creatinine 0.8 mg/dL Estimated GFR (Cockcroft-Gault) 98.6 Glucose Level 96 mg/dL Calcium Level 8.6 mg/dL ORDERED: ANAER/AEROB/GS COMMENTS: RLQ ABD ABSCESS ANAEROBIC-AEROBIC CULTURE PENDING ANAEROBIC RES 1 PENDING AEROBIC CULT Final Preliminary report Final report AEROBIC RES 1 Final Escherichia coli 4+ AEROBIC RES 2 Final Comment Beta hemolytic Streptococcus, group C 4+ Penicillin and ampicillin are drugs of choice for treatment of beta-hemolytic streptococcal infections. Susceptibility testing of penicillins and other beta-lactam agents approved by the FDA for treatment of beta-hemolytic streptococcal infections need not be performed routinely because nonsusceptible isolates are extremely rare in any beta-hemolytic streptococcus and have not been reported for Streptococcus pyogenes (group A). (CLSI) ANTIMICROBIAL SUSCEPTIBILITY Final Comment ANTIMICROBIAL SUSCEPTIBILITY Final (continued) S = Susceptible; I = Intermediate; R = Resistant P = Positive; N = Negative MICS are expressed in micrograms per mL Antibiotic RSLT#1 RSLT#2 RSLT#3 RSLT#4 Cefepime S<=1 Ceftriaxone S<=1 Ciprofloxacin S<=0.25 Gentamicin S<=1 Imipenem S<=1 Levofloxacin S<=0.12 Meropenem S<=0.25 Tetracycline S<=1 Tobramycin S<=1 Trimethoprim/Sulfa S<=20 GRAM STAIN Final Final report GRAM STAIN RES 1 Final No organisms seen GRAM STAIN RES 2 Final Comment Many white blood cells. Imaging: CT A/P 04/26 pending PE: GEN: NAD LUNGS: CTAB HEART: RRR ABD: quiet BS, soft, mildly tender RLQ NEURO/PSYCH: A & O 3 A/P: RLQ abscess -- Await interval CT. DEBBIE BRUNER Apr 26, 2019 09:30
[2019-04-26] MEDS: LACTOBACILLUS RHAMNOSUS GG 1 CAPSULE. PO SCH ×2 (09:49→21:11)
[2019-04-26] MEDS: DOCUSATE SODIUM 100 MG CAPSULE. PO SCH (09:49)
[2019-04-26] MEDS: IV NORMAL SALINE 1000ML BAG 1,000 ML IV SCH ×2 (09:49→23:11)
--- NOTE | 2019-04-26 10:33 | RAD ---
PQRS Compliance Statement: One or more of the following individualized dose reduction techniques were utilized for this examination: 1. Automated exposure control 2. Adjustment of the mA and/or kV according to patient size 3. Use of iterative reconstruction technique CT abdomen/pelvis with contrast 04/26/2019 5:00 AM INDICATION: Pelvic abscess status post drainage COMPARISON: CT abdomen/pelvis 04/22/2019, 04/21/2019 TECHNIQUE: Multiple axial CT images of the abdomen and pelvis were obtained after the intravenous administration of 75 mL Omnipaque 300. Coronal and sagittal reformats are provided. FINDINGS: Trace bilateral pleural effusions, right greater than left with adjacent compressive atelectasis. Heart size is within normal limits. Simple cyst in the inferior right hepatic lobe measures 2.1 cm. Diffuse hepatic steatosis. Spleen, bilateral adrenal glands, pancreas and gallbladder are normal in appearance. Abdominal aorta is normal in course and caliber. No pathologically enlarged lymph nodes are identified in abdomen and pelvis. There is no free intraperitoneal air. There is residual strandy inflammatory changes in the right paracolic gutter. There is no significant residual fluid collection surrounding the pigtail catheter which enters via a right lateral approach and terminates between the terminal ileum and sigmoid colon. There is circumferential wall thickening involving the distal aspect of the sigmoid colon, proximal to the rectosigmoid junction. There is circumferential wall thickening involving the terminal ileum. No bowel obstruction is identified. The kidneys enhance symmetrically. There is no suspicious renal mass. There is no hydronephrosis. There are no suspected calculi within the kidneys, ureters or urinary bladder. Urinary bladder is within normal limits given degree of distention. Prostate and seminal vesicles are normal. Small fat-containing left femoral hernia is identified. No suspicious osseous normality. IMPRESSION: 1. Near complete resolution of inflammatory fluid collection within the right lower quadrant with residual fat stranding the right lower quadrant. No significant free fluid or free intraperitoneal air is identified. 2. Circumferential wall thickening is noted involving the terminal ileum and distal aspect of the sigmoid colon adjacent to the previously seen abscess. Findings favor improving colitis/diverticulitis with reactive inflammatory changes of the terminal ileum. 3. Trace bilateral pleural effusions, right greater than left. 4. Diffuse hepatic steatosis. Electronically signed by: Reshma Wiley MD (04/26/2019 10:30 AM) [facility]
--- NOTE | 2019-04-26 10:57 | PDOC ---
TODD VALERIO UG DESIGNER 04/26/19 1057: SURGICAL PROGRESS NOTE Subjective feeling better drain site pain Vital Signs Vital Signs Date Time Temp Pulse Resp B/P (MAP) Pulse Ox O2 Delivery O2 Flow Rate FiO2 04/26/19 07:00 97.6 70 18 136/89 (105) 95 Room Air 97.6 I&O Intake and Output 04/26/19 06:59 Output Total 35 ml Balance -35 ml Drainage Total 35 ml # Voids 6 General: Alert, Oriented X3, Cooperative, No acute distress Abdomen: Soft, Other (drain serous fluid) Labs Laboratory Tests Test 04/24/19 11:25 04/26/19 05:50 White Blood Count 12.9 x10^3/uL (4.0-11.0) 7.2 x10^3/uL (4.0-11.0) Red Blood Count 4.14 x10^6/uL (4.30-5.70) 4.16 x10^6/uL (4.30-5.70) Hemoglobin 13.4 g/dL (13.0-17.5) 13.6 g/dL (13.0-17.5) Hematocrit 39.0 % (39.0-53.0) 39.3 % (39.0-53.0) Mean Corpuscular Volume 94 fL (79-100) 95 fL (79-100) Mean Corpuscular Hemoglobin 32 pg (25-35) 33 pg (25-35) Mean Corpuscular Hemoglobin Concent 34 g/dL (31-37) 35 g/dL (31-37) Red Cell Distribution Width 12.7 % (11.5-14.5) 12.9 % (11.5-14.5) Platelet Count 284 x10^3/uL (140-400) 345 x10^3/uL (140-400) Neutrophils (%) (Auto) 85 % (31-73) 72 % (31-73) Lymphocytes (%) (Auto) 7 % (24-48) 16 % (24-48) Monocytes (%) (Auto) 8 % (0-9) 9 % (0-9) Eosinophils (%) (Auto) 1 % (0-3) 3 % (0-3) Basophils (%) (Auto) 0 % (0-3) 0 % (0-3) Neutrophils # (Auto) 10.9 x10^3/uL (1.8-7.7) 5.2 x10^3/uL (1.8-7.7) Lymphocytes # (Auto) 0.9 x10^3/uL (1.0-4.8) 1.1 x10^3/uL (1.0-4.8) Monocytes # (Auto) 1.0 x10^3/uL (0.0-1.1) 0.6 x10^3/uL (0.0-1.1) Eosinophils # (Auto) 0.1 x10^3/uL (0.0-0.7) 0.2 x10^3/uL (0.0-0.7) Basophils # (Auto) 0.0 x10^3/uL (0.0-0.2) 0.0 x10^3/uL (0.0-0.2) Sodium Level 141 mmol/L (136-145) 144 mmol/L (136-145) Potassium Level 3.7 mmol/L (3.5-5.1) 3.7 mmol/L (3.5-5.1) Chloride Level 106 mmol/L (98-107) 108 mmol/L (98-107) Carbon Dioxide Level 28 mmol/L (21-32) 28 mmol/L (21-32) Anion Gap 7 (6-14) 8 (6-14) Blood Urea Nitrogen 7 mg/dL (8-26) 6 mg/dL (8-26) Creatinine 0.7 mg/dL (0.7-1.3) 0.8 mg/dL (0.7-1.3) Estimated GFR (Cockcroft-Gault) 115.0 98.6 Glucose Level 106 mg/dL (70-99) 96 mg/dL (70-99) Calcium Level 8.3 mg/dL (8.5-10.1) 8.6 mg/dL (8.5-10.1) Laboratory Tests Test 04/26/19 05:50 White Blood Count 7.2 x10^3/uL (4.0-11.0) Red Blood Count 4.16 x10^6/uL (4.30-5.70) Hemoglobin 13.6 g/dL (13.0-17.5) Hematocrit 39.3 % (39.0-53.0) Mean Corpuscular Volume 95 fL (79-100) Mean Corpuscular Hemoglobin 33 pg (25-35) Mean Corpuscular Hemoglobin Concent 35 g/dL (31-37) Red Cell Distribution Width 12.9 % (11.5-14.5) Platelet Count 345 x10^3/uL (140-400) Neutrophils (%) (Auto) 72 % (31-73) Lymphocytes (%) (Auto) 16 % (24-48) Monocytes (%) (Auto) 9 % (0-9) Eosinophils (%) (Auto) 3 % (0-3) Basophils (%) (Auto) 0 % (0-3) Neutrophils # (Auto) 5.2 x10^3/uL (1.8-7.7) Lymphocytes # (Auto) 1.1 x10^3/uL (1.0-4.8) Monocytes # (Auto) 0.6 x10^3/uL (0.0-1.1) Eosinophils # (Auto) 0.2 x10^3/uL (0.0-0.7) Basophils # (Auto) 0.0 x10^3/uL (0.0-0.2) Sodium Level 144 mmol/L (136-145) Potassium Level 3.7 mmol/L (3.5-5.1) Chloride Level 108 mmol/L (98-107) Carbon Dioxide Level 28 mmol/L (21-32) Anion Gap 8 (6-14) Blood Urea Nitrogen 6 mg/dL (8-26) Creatinine 0.8 mg/dL (0.7-1.3) Estimated GFR (Cockcroft-Gault) 98.6 Glucose Level 96 mg/dL (70-99) Calcium Level 8.6 mg/dL (8.5-10.1) Assessment/Plan ct with resolved abscess will review with HILDA Colon MD 04/26/19 1312: SURGICAL PROGRESS NOTE Assessment/Plan pt seen examined WBC down CT improved advance diet to fulls no new surgical recs TODD VALERIO APRN Apr 26, 2019 10:57 HILDA WALKER MD Apr 26, 2019 13:12
[2019-04-26 11:00] VITALS: BP 143/89
[2019-04-26] MEDS: ENOXAPARIN 40 MG/0.4 ML SYRINGE. SQ SCH (11:29)
[2019-04-26 15:00] VITALS: BP 127/82
[2019-04-26 19:30] VITALS: BP 123/80
[2019-04-26 23:42] VITALS: BP 136/84
[2019-04-27 03:00] VITALS: BP 133/76
[2019-04-27] MEDS: PIPERACILLIN/TAZOBACTAM 3.375 GM in IV NORMAL SALINE 50ML 50 ML IV SCH ×2 (05:43→12:22)
[2019-04-27 07:00] VITALS: BP 139/87
[2019-04-27] MEDS: DOCUSATE SODIUM 100 MG CAPSULE. PO SCH (08:34)
[2019-04-27] MEDS: IV NORMAL SALINE 1000ML BAG 1,000 ML IV SCH (08:34)
[2019-04-27] MEDS: LACTOBACILLUS RHAMNOSUS GG 1 CAPSULE. PO SCH (08:34)
[2019-04-27 11:00] VITALS: BP 131/81
--- NOTE | 2019-04-27 11:11 | PDOC ---
Subjective: Subjective: Feeling better. Dr. Whaley and students present - ?discharge on PO atbx today Objective: Vital Signs: Vital Signs Date Time Temp Pulse Resp B/P (MAP) Pulse Ox O2 Delivery O2 Flow Rate FiO2 04/27/19 07:26 Room Air 04/27/19 07:00 97.9 73 16 139/87 (477) 95 97.9 Labs: ORDERED: ANAER/AEROB/GS COMMENTS: RLQ ABD ABSCESS Procedure Result ANAEROBIC-AEROBIC CULTURE Final Final report ANAEROBIC RES 1 Final Bacteroides species 4+ AEROBIC CULT Final Preliminary report Final report AEROBIC RES 1 Final Escherichia coli 4+ AEROBIC RES 2 Final Comment Beta hemolytic Streptococcus, group C 4+ Penicillin and ampicillin are drugs of choice for treatment of beta-hemolytic streptococcal infections. Susceptibility testing of penicillins and other beta-lactam agents approved by the FDA for treatment of beta-hemolytic streptococcal infections need not be performed routinely because nonsusceptible isolates are extremely rare in any beta-hemolytic streptococcus and have not been reported for Streptococcus pyogenes (group A). (CLSI) ANTIMICROBIAL SUSCEPTIBILITY Final Comment ANTIMICROBIAL SUSCEPTIBILITY Final (continued) S = Susceptible; I = Intermediate; R = Resistant P = Positive; N = Negative MICS are expressed in micrograms per mL Antibiotic RSLT#1 RSLT#2 RSLT#3 RSLT#4 Cefepime S<=1 Ceftriaxone S<=1 Ciprofloxacin S<=0.25 Gentamicin S<=1 Imipenem S<=1 Levofloxacin S<=0.12 Meropenem S<=0.25 Tetracycline S<=1 Tobramycin S<=1 Trimethoprim/Sulfa S<=20 GRAM STAIN Final Final report GRAM STAIN RES 1 Final No organisms seen GRAM STAIN RES 2 Final Comment Many white blood cells. Imaging: CT A/P IMPRESSION: 1. Near complete resolution of inflammatory fluid collection within the right lower quadrant with residual fat stranding the right lower quadrant. No significant free fluid or free intraperitoneal air is identified. 2. Circumferential wall thickening is noted involving the terminal ileum and distal aspect of the sigmoid colon adjacent to the previously seen abscess. Findings favor improving colitis/diverticulitis with reactive inflammatory changes of the terminal ileum. 3. Trace bilateral pleural effusions, right greater than left. 4. Diffuse hepatic steatosis. PE: GEN: NAD LUNGS: CTAB HEART: RRR ABD: soft, non-tender, RLQ drain NEURO/PSYCH: A & O 3 A/P: RLQ abscess - resolving per interval CT as above -- Defer DC plans to surgery. DEBBIE BRUNER Apr 27, 2019 11:11
[2019-04-27] MEDS: ENOXAPARIN 40 MG/0.4 ML SYRINGE. SQ SCH (12:24)
--- NOTE | 2019-04-27 13:01 | PDOC ---
Provider Note Provider Note SURG pt seen home today with drain call office Thursday with BUTCH output d/w Mr Ortiz and his HILDA WALKER MD Apr 27, 2019 13:00
--- NOTE | 2019-04-27 13:53 | PDOC ---
[facility] PROGRESS NOTE Chief Complaint Chief Complaint A/P: Intra-abdominal abscess - r/o perf appy, diverticultis etc s/p indwelling BUTCH DRain (iR) Sepsis - 2/2 abdominal abscess with leukocytosis and tachycardia, cont IVF and antibiotics Pulmonary nodule - incidental finding, based on size we have advised him of a need for 6 month f/u. History of Present Illness History of Present Illness 04/27/19 Pt was seen and examined at bedside Pt was sitting upright Minimal drainage via BUTCH Pt accompanied by Pt reported being able to eat Explained CT abd results to the patient. Provided education about diverticulitis D/w RN, Dr. Marks and Marj Velez Chart and labs reviewed CT Abd IMPRESSION: 1. Near complete resolution of inflammatory fluid collection within the right lower quadrant with residual fat stranding the right lower quadrant. No significant free fluid or free intraperitoneal air is identified. 2. Circumferential wall thickening is noted involving the terminal ileum and distal aspect of the sigmoid colon adjacent to the previously seen abscess. Findings favor improving colitis/diverticulitis with reactive inflammatory changes of the terminal ileum. 3. Trace bilateral pleural effusions, right greater than left. 4. Diffuse hepatic steatosis. 04/26/[address] Ortiz Pt reports RLQ pain continues, high pain tolerance no fevers minimal drainage rLQ via BUTCH CT abd done but read pending Vitals/I&O Vitals/I&O: Vital Signs Date Time Temp Pulse Resp B/P (MAP) Pulse Ox O2 Delivery O2 Flow Rate FiO2 04/27/19 11:00 98.1 94 16 131/81 (98) 96 Room Air 98.1 I & O 04/26/19 04/26/19 04/27/19 15:00 23:00 07:00 Intake Total 480 ml 500 ml 390 ml Output Total 20 ml Balance 480 ml 480 ml 390 ml Physical Exam General: Alert, Oriented X3, Cooperative, No acute distress Heart: Regular rate, Other Lungs: Clear Abdomen: Soft, Other (drain serous fluid) Extremities: No clubbing, No cyanosis, No edema, Normal pulses, No tenderness/swelling Skin: No rashes, No breakdown, No significant lesion Review of Systems Review of Systems: Pt denies fever Pt co pain at RLQ drainage site Pt denies numbness and tingling Assessment and Plan Assessmemt and Plan Assessment Intra-abdominal abscess Sepsis Diverticulitis Plan Wound care Abx Full diet Home meds Left prescriptions for flagyl and zosyn Full code Discharge when OK with surgery Comment Review of Relevant I have reviewed the following items jessica (where applicable) has been applied. JOSE OCHOA III DO Apr 27, 2019 13:53
--- NOTE | 2019-04-27 15:06 | NUR ---
Discharge Note: [facility] Discharge instructions and discharge home medications reviewed with Patient and a copy given. All questions have been answered and understanding verbalized. The following instructions and handouts were given: information about abscess. Discontinued lines and drains: IV line in right forearm removed, catheter tip intact. Patient discharged to home with self care with , patient ambulated to discharge vehicle.
--- NOTE | 2019-05-16 16:37 | RAD ---
Procedure: CT-guided abdominal drain placement Clinical Indication: 58-year-old with abdominal abscess Sedation: Conscious sedation was administered with a total intraprocedural [id number] time of 30 minutes. The patient was monitored by a qualified independent observer throughout the time of sedation. Please refer to the medical record for exact doses of medications utilized to achieve moderate sedation. Antibiotics: None Sterility: The procedure was performed in its entirety using appropriate elements of sterile technique. Consent: The procedure was explained in its entirety to the patient or the patients designated member service representative by a member of the treatment team, including a discussion of the risks, benefits and commonly accepted alternatives to the procedure, as well as the expected consequences of no therapy whatsoever. Discussion of the risks included, but was not limited to, those that are most frequent and those that are rare but possibly severe or life-threatening, as well as the possibility of unforeseen complications. Technique and Findings: Following informed consent, the patient was prepped and draped in usual sterile fashion. Preliminary CT scan of the area of interest was performed. 1% lidocaine was used to achieve local anesthesia over the area of interest. A small dermatotomy was made. Under periodic CT surveillance, a 19-gauge needle was advanced into the targeted fluid collection, and brittany pus was aspirated. The needle was then exchanged over a wire for a 12 [place] pigtail drainage catheter. This catheter was sutured to the skin and placed to bulb suction. Specimen was sent for microbiologic analysis. Complications: No immediate Impression: 1. CT-guided abdominal drain placement as described.
== END 2019-04-27 14:22 | disposition home or self-care (01) | DRG 871 ==
LOC: 4 NORTH 14:54
PROVIDERS: ADMIT Internal Medicine; ATTEND Internal Medicine
PROC: 0W9G3ZZ Drainage of Peritoneal Cavity, Percutaneous Approach (ICD-10-PCS; principal; 2019-04-22)
DX: A41.9 Sepsis, unspecified organism (principal); K65.1 Peritoneal abscess; K57.80 Diverticulitis of intestine, part unspecified, with perforation and abscess without bleeding; J30.9 Allergic rhinitis, unspecified; K59.00 Constipation, unspecified; K52.9 Noninfective gastroenteritis and colitis, unspecified; K76.0 Fatty (change of) liver, not elsewhere classified; Z80.0 Family history of malignant neoplasm of digestive organs; Z83.3 Family history of diabetes mellitus; Z79.899 Other long term (current) drug therapy
CPT/HCPCS: 36415; 49406; 74177; 80048; 80053; 83605; 85007; 85025; 85610; 87071; 87075; 87186; 99152; 99153; A4215; C1729; C1894; J1170; J1644; J1650; J2250; J2405; J2543; J3010; J3490; J7030; Q9967; G0378